=== PATIENT | female | born 1965 | race Caucasian/White ===

== ENCOUNTER 2018-02-21 16:43 | Inpatient (IN) | payer BC ==
[~2018-02-21] VITALS: Ht 170.2 cm; Wt 96.7 kg
[2018-02-21 17:36] LABS: BASOPHILS % (AUTO) 0.1 % (0-1); EOSINOPHILS # (AUTO) 0.3 X10'3 (0-0.9); EOSINOPHILS % (AUTO) 1.6 % (0-6); HEMATOCRIT 45.8 % (35.0-45.0); HEMOGLOBIN 15.8 g/dl (12.0-16.0); LYMPHOCYTES # (AUTO) 1.8 X10'3 (1.1-4.8); LYMPHOCYTES % (AUTO) 9.8 % (21-51); MEAN CORPUSCULAR HEMOGLOBIN 31.8 PG (27.0-31.0); MEAN CORPUSCULAR HGB CONC 34.5 % (33.0-36.5); MEAN CORPUSCULAR VOLUME 92.1 FL (78-98); MEAN PLATELET VOLUME 9.1 FL (7.4-10.4); MONOCYTES # (AUTO) 0.9 X10'3 (0-0.9); NEUTROPHILS # (AUTO) 15.3 X10'3 (1.8-7.7); NEUTROPHILS % (AUTO) 83.5 % (42-75); PLATELET COUNT 344 X10'3 (140-440); RED BLOOD COUNT 4.97 X10'6 (4.20-5.60); RED CELL DISTRIBUTION WIDTH 13.8 % (11.5-14.5); WHITE BLOOD COUNT 18.3 X10'3 (4.5-11.0)
[2018-02-21 17:51] LABS: ALANINE AMINOTRANSFERASE 33 U/L (12-78); ALBUMIN 3.4 G/DL (3.4-5.0); ALBUMIN/GLOBULIN RATIO 0.8 (1.1-1.5); ANION GAP 12 (8-16); ASPARTATE AMINO TRANSFERASE 21 U/L (10-37); BILIRUBIN,TOTAL 1.2 MG/DL (0.1-1.0); BLOOD UREA NITROGEN 11 MG/DL (7-18); CALCIUM 9.4 MG/DL (8.5-10.1); CHLORIDE 98 MMOL/L (99-107); CREATININE 0.92 MG/DL (0.40-0.90); GLUCOSE 126 MG/DL (70-104); POTASSIUM 4.1 MMOL/L (3.5-5.1); SODIUM 133 MMOL/L (135-145); TOTAL CARBON DIOXIDE 23.2 MMOL/L (24-32); TOTAL PROTEIN 7.7 G/DL (6.4-8.2); eGFR 64 ML/MIN
[2018-02-21 17:52] LABS: ALKALINE PHOSPHATASE 116 IU/L (46-116); LIPASE 169 U/L (73-393)
[2018-02-21 17:58] LABS: CLARITY,URINE CLOUDY (Clear); COLOR,URINE YELLOW (Yellow); GLUCOSE, URINE NEGATIVE (Neg); KETONES,URINE 15 mg/dl (Neg); LEUKOCYTE ESTERASE ,URINE TRACE (Neg); NITRITES, URINE POSITIVE (Neg); OCCULT BLOOD,URINE SMALL (Neg); PROTEIN,URINE NEGATIVE (Neg)
[2018-02-21 17:59] LABS: UA COLLECTION TYPE CLN CATCH MIDSTREAM
[2018-02-21 18:03] LABS: BACTERIA,URINE 3+ /HPF (Neg); SQUAMOUS EPITHELIAL CELL,UR MODERATE /LPF (FEW)
[2018-02-21 18:04] LABS: RBC,URINE 0-2 /HPF (0-2); WBC,URINE 20-30 /HPF (0-4)
[2018-02-21] MEDS ORDERED: ondansetron/PF 4mg/2ml inj IV ONE (20:15)
[2018-02-21] MEDS ORDERED: fentaNYL/PF 50MCG/1 ML 2ML syringe IV ONE ×2 (20:15→21:45)
[2018-02-21] MEDS ORDERED: LORazepam 2 mg/ml vial IV ONE (20:15)
[2018-02-21] MEDS ORDERED: normal saline 1000ML IV soln IVB ONE (20:20)
[2018-02-21] MEDS ORDERED: ondansetron 4mg rapidly disintigrating tab PO ONE (20:45)
[2018-02-21] MEDS ORDERED: levoFLOXACIN-Levaquin 750MG/D5 150 ML IV SCH (20:55)
[2018-02-21] MEDS ORDERED: HYDROmorphone inj. 0.5 MG/0.5 ML DISP.SYRIN IV PRN ×2 (21:45)
[2018-02-21] MEDS ORDERED: diphenhydrAMINE 50 mg/ml inj IV PRN (21:45)
[2018-02-21] MEDS ORDERED: LEVO125T PO (22:09)
[2018-02-21] MEDS ORDERED: LISI-600 PO (22:09)
[2018-02-21] MEDS ORDERED: FLUT1AER (22:09)
[2018-02-21] MEDS ORDERED: OMEP20CA10 PO (22:09)
[2018-02-21] MEDS ORDERED: NAS0.025NS BOTHNARES (22:09)
[2018-02-21] MEDS: potassium Cl 20mEq in NS 1,000 ML IV SCH (22:34)
[2018-02-22] VITALS: BP 116/67
[2018-02-22] MEDS: metroNIDAZOLE-Flagyl 500mg/NS 100 ML IV SCH ×4 (00:56→23:27)
[2018-02-22] MEDS: HYDROmorphone 2mg tablet PO PRN ×9 (00:57→21:59)
[2018-02-22] MEDS ORDERED: diphenhydrAMINE 25mg capsule PO PRN (01:15)
[2018-02-22] MEDS: potassium Cl 20mEq in NS 1,000 ML IV SCH ×2 (02:57→17:51)
[2018-02-22 05:21] LABS: BASOPHILS # (AUTO) 0.2 X10'3 (0-0.2); BASOPHILS % (AUTO) 1.4 % (0-1); EOSINOPHILS # (AUTO) 0.4 X10'3 (0-0.9); EOSINOPHILS % (AUTO) 2.8 % (0-6); HEMATOCRIT 40.6 % (35.0-45.0); HEMOGLOBIN 13.9 g/dl (12.0-16.0); LYMPHOCYTES % (AUTO) 15.7 % (21-51); MEAN CORPUSCULAR HGB CONC 34.2 % (33.0-36.5); MEAN CORPUSCULAR VOLUME 93.5 FL (78-98); MEAN PLATELET VOLUME 9.1 FL (7.4-10.4); MONOCYTES % (AUTO) 7.5 % (2-12); NEUTROPHILS # (AUTO) 9.3 X10'3 (1.8-7.7); NEUTROPHILS % (AUTO) 72.6 % (42-75); PLATELET COUNT 252 X10'3 (140-440); RED BLOOD COUNT 4.34 X10'6 (4.20-5.60); RED CELL DISTRIBUTION WIDTH 13.9 % (11.5-14.5); WHITE BLOOD COUNT 12.8 X10'3 (4.5-11.0)
[2018-02-22 06:04] LABS: ALANINE AMINOTRANSFERASE 24 U/L (12-78); ALBUMIN 2.7 G/DL (3.4-5.0); ALBUMIN/GLOBULIN RATIO 0.7 (1.1-1.5); ALKALINE PHOSPHATASE 92 IU/L (46-116); ANION GAP 9 (8-16); ASPARTATE AMINO TRANSFERASE 17 U/L (10-37); BILIRUBIN,TOTAL 1.1 MG/DL (0.1-1.0); BLOOD UREA NITROGEN 9 MG/DL (7-18); BUN/CREATININE RATIO 10.6 (6.6-38.0); CALCIUM 8.4 MG/DL (8.5-10.1); CHLORIDE 103 MMOL/L (99-107); CREATININE 0.85 MG/DL (0.40-0.90); GLUCOSE 93 MG/DL (70-104); LIPASE 138 U/L (73-393); MAGNESIUM 1.6 MG/DL (1.5-2.4); PHOSPHORUS 3.6 MG/DL (2.3-4.5); POTASSIUM 3.6 MMOL/L (3.5-5.1); SODIUM 139 MMOL/L (135-145); TOTAL CARBON DIOXIDE 27.5 MMOL/L (24-32); TOTAL PROTEIN 6.5 G/DL (6.4-8.2); eGFR 71 ML/MIN
[2018-02-22] MEDS: levoTHYROXINE 125mcg tablet PO SCH (07:28)
[2018-02-22] MEDS: enoxaparin 40mg/0.4ml syringe SQ SCH (07:28)
[2018-02-22] MEDS: pantoprazole 40mg Tablet.DR PO SCH (07:28)
[2018-02-22 08:00] VITALS: BP 95/56
[2018-02-22] MEDS ORDERED: levoFLOXACIN-Levaquin 750MG/D5 150 ML IV SCH (08:00)
[2018-02-22] MEDS: lisinopril 20mg tablet PO SCH (08:00)
[2018-02-22] MEDS: levoFLOXACIN-Levaquin 500mg/D5 100 ML IV SCH (10:19)
[2018-02-22] MEDS: fluticasone nasal spray 16GM bottle NS SCH (10:22)
[2018-02-22 11:00] VITALS: BP 87/50
[2018-02-22] MEDS: proMETHazine 25mg tablet PO PRN ×2 (11:52→15:32)
[2018-02-22 19:00] VITALS: BP 110/48
[2018-02-22] MEDS: hydrOXYzine 10 MG tablet PO PRN (19:58)
[2018-02-23] VITALS: BP 111/66
[2018-02-23] MEDS: HYDROmorphone 2mg tablet PO PRN ×7 (00:09→22:03)
[2018-02-23] MEDS: proMETHazine 25mg tablet PO PRN ×3 (00:19→22:32)
[2018-02-23] MEDS: zolpidem 5mg tablet PO PRN ×2 (00:19→22:03)
[2018-02-23] MEDS: hydrOXYzine 10 MG tablet PO PRN ×3 (02:24→18:40)
[2018-02-23] MEDS: potassium Cl 20mEq in NS 1,000 ML IV SCH ×2 (03:38→15:27)
[2018-02-23 06:07] LABS: BASOPHILS # (AUTO) 0.2 X10'3 (0-0.2); BASOPHILS % (AUTO) 1.1 % (0-1); EOSINOPHILS # (AUTO) 0.5 X10'3 (0-0.9); EOSINOPHILS % (AUTO) 3.1 % (0-6); HEMATOCRIT 41.5 % (35.0-45.0); HEMOGLOBIN 14.2 g/dl (12.0-16.0); LYMPHOCYTES % (AUTO) 13.3 % (21-51); MEAN CORPUSCULAR HEMOGLOBIN 32.3 PG (27.0-31.0); MEAN CORPUSCULAR HGB CONC 34.2 % (33.0-36.5); MEAN CORPUSCULAR VOLUME 94.4 FL (78-98); MEAN PLATELET VOLUME 9.8 FL (7.4-10.4); MONOCYTES # (AUTO) 1.2 X10'3 (0-0.9); MONOCYTES % (AUTO) 7.8 % (2-12); NEUTROPHILS # (AUTO) 11.1 X10'3 (1.8-7.7); NEUTROPHILS % (AUTO) 74.7 % (42-75); PLATELET COUNT 261 X10'3 (140-440); RED CELL DISTRIBUTION WIDTH 13.6 % (11.5-14.5); WHITE BLOOD COUNT 14.9 X10'3 (4.5-11.0)
[2018-02-23 06:56] LABS: ALANINE AMINOTRANSFERASE 28 U/L (12-78); ALBUMIN/GLOBULIN RATIO 0.7 (1.1-1.5); ALKALINE PHOSPHATASE 111 IU/L (46-116); ANION GAP 11 (8-16); ASPARTATE AMINO TRANSFERASE 27 U/L (10-37); BILIRUBIN,TOTAL 0.7 MG/DL (0.1-1.0); BLOOD UREA NITROGEN 5 MG/DL (7-18); BUN/CREATININE RATIO 6.2 (6.6-38.0); CALCIUM 8.6 MG/DL (8.5-10.1); CHLORIDE 103 MMOL/L (99-107); CREATININE 0.81 MG/DL (0.40-0.90); GLUCOSE 87 MG/DL (70-104); MAGNESIUM 1.6 MG/DL (1.5-2.4); PHOSPHORUS 3.3 MG/DL (2.3-4.5); POTASSIUM 3.8 MMOL/L (3.5-5.1); SODIUM 136 MMOL/L (135-145); TOTAL CARBON DIOXIDE 21.8 MMOL/L (24-32); TOTAL PROTEIN 7.1 G/DL (6.4-8.2); eGFR 75 ML/MIN
[2018-02-23 07:00] VITALS: BP 110/76
[2018-02-23] MEDS: enoxaparin 40mg/0.4ml syringe SQ SCH (08:20)
[2018-02-23] MEDS: levoTHYROXINE 125mcg tablet PO SCH (08:20)
[2018-02-23] MEDS: pantoprazole 40mg Tablet.DR PO SCH (08:20)
[2018-02-23] MEDS: lisinopril 20mg tablet PO SCH (08:21)
[2018-02-23] MEDS: fluticasone nasal spray 16GM bottle NS SCH (08:21)
[2018-02-23] MEDS: levoFLOXACIN-Levaquin 500mg/D5 100 ML IV SCH (08:22)
[2018-02-23] MEDS: metroNIDAZOLE-Flagyl 500mg/NS 100 ML IV SCH ×2 (08:22→15:26)
[2018-02-23 12:00] VITALS: BP 129/72
[2018-02-23 20:00] VITALS: BP 114/72
[2018-02-24] VITALS: BP 98/69
[2018-02-24] MEDS: metroNIDAZOLE-Flagyl 500mg/NS 100 ML IV SCH ×3 (00:23→16:04)
[2018-02-24] MEDS: potassium Cl 20mEq in NS 1,000 ML IV SCH (00:24)
[2018-02-24] MEDS: hydrOXYzine 10 MG tablet PO PRN ×3 (01:38→21:40)
[2018-02-24] MEDS ORDERED: methylPREDNISolone sod succ 125mg/2ml vial IV ONE (02:40)
[2018-02-24] MEDS: albuterol 2.5 MG/3 ML nebule NEB PRN ×3 (02:59→19:03)
[2018-02-24] MEDS: proMETHazine 25mg tablet PO PRN ×2 (05:08→14:40)
[2018-02-24 05:17] LABS: BASOPHILS # (AUTO) 0.1 X10'3 (0-0.2); BASOPHILS % (AUTO) 0.4 % (0-1); EOSINOPHILS % (AUTO) 0 % (0-6); HEMATOCRIT 38.7 % (35.0-45.0); HEMOGLOBIN 13.3 g/dl (12.0-16.0); LYMPHOCYTES # (AUTO) 1.2 X10'3 (1.1-4.8); LYMPHOCYTES % (AUTO) 7.9 % (21-51); MEAN CORPUSCULAR HEMOGLOBIN 32.2 PG (27.0-31.0); MEAN CORPUSCULAR HGB CONC 34.3 % (33.0-36.5); MEAN CORPUSCULAR VOLUME 93.9 FL (78-98); MEAN PLATELET VOLUME 9.8 FL (7.4-10.4); MONOCYTES # (AUTO) 0.4 X10'3 (0-0.9); MONOCYTES % (AUTO) 2.7 % (2-12); NEUTROPHILS # (AUTO) 13.7 X10'3 (1.8-7.7); PLATELET COUNT 215 X10'3 (140-440); RED BLOOD COUNT 4.12 X10'6 (4.20-5.60); RED CELL DISTRIBUTION WIDTH 13.9 % (11.5-14.5); WHITE BLOOD COUNT 15.4 X10'3 (4.5-11.0)
[2018-02-24 05:35] LABS: ALANINE AMINOTRANSFERASE 24 U/L (12-78); ALBUMIN 2.6 G/DL (3.4-5.0); ALBUMIN/GLOBULIN RATIO 0.7 (1.1-1.5); ALKALINE PHOSPHATASE 104 IU/L (46-116); ANION GAP 14 (8-16); ASPARTATE AMINO TRANSFERASE 41 U/L (10-37); BILIRUBIN,TOTAL 1.1 MG/DL (0.1-1.0); BLOOD UREA NITROGEN 3 MG/DL (7-18); BUN/CREATININE RATIO 4.3 (6.6-38.0); CALCIUM 8.4 MG/DL (8.5-10.1); CHLORIDE 101 MMOL/L (99-107); GLUCOSE 97 MG/DL (70-104); POTASSIUM 3.4 MMOL/L (3.5-5.1); SODIUM 136 MMOL/L (135-145); TOTAL CARBON DIOXIDE 21.2 MMOL/L (24-32); TOTAL PROTEIN 6.4 G/DL (6.4-8.2); eGFR 88 ML/MIN
[2018-02-24 05:41] LABS: MAGNESIUM 1.3 MG/DL (1.5-2.4); PHOSPHORUS 3.3 MG/DL (2.3-4.5); TROPONIN I < 0.04 NG/ML (0.0-0.05)
[2018-02-24] MEDS: pantoprazole 40mg Tablet.DR PO SCH (07:29)
[2018-02-24] MEDS: HYDROmorphone 2mg tablet PO PRN ×5 (07:29→20:34)
[2018-02-24] MEDS: fluticasone nasal spray 16GM bottle NS SCH (07:29)
[2018-02-24] MEDS: levoTHYROXINE 125mcg tablet PO SCH (07:29)
[2018-02-24] MEDS: lisinopril 20mg tablet PO SCH (07:29)
[2018-02-24] MEDS: enoxaparin 40mg/0.4ml syringe SQ SCH (07:30)
[2018-02-24 08:00] VITALS: BP 99/64
[2018-02-24] MEDS ORDERED: levoFLOXACIN-Levaquin 500mg/D5 100 ML IV SCH (08:00)
[2018-02-24] MEDS ORDERED: CefTRIAXone/D5W-Rocephin 1gm 50 ML IV SCH ×2 (08:00→15:40)
[2018-02-24 12:00] VITALS: BP 92/53
[2018-02-24 20:00] VITALS: BP 113/61
[2018-02-24] MEDS ORDERED: magnesium 4gm in 100ml NS 100 ML IV PRN (20:00)
[2018-02-24] MEDS ORDERED: potassium Cl 20 mEq SR tablet PO PRN (20:00)
[2018-02-24] MEDS ORDERED: potassium Cl 40MEQ/NS 500ml 500 ML IV PRN ×2 (20:00)
[2018-02-24] MEDS ORDERED: magnesium Cl slow-release 64mg tablet PO PRN (20:00)
[2018-02-24] MEDS ORDERED: magnesium 2GM in 50ml NS 50 ML IV PRN (20:00)
[2018-02-24] MEDS: potassium Cl 20 mEq SR tablet PO PRN (20:32)
[2018-02-24] MEDS: zolpidem 5mg tablet PO PRN (21:40)
[2018-02-25] VITALS (18 sets, daily range): BP systolic 74–147; BP diastolic 52–116
[2018-02-25] MEDS: metroNIDAZOLE-Flagyl 500mg/NS 100 ML IV SCH (00:09)
[2018-02-25] MEDS: HYDROmorphone 2mg tablet PO PRN (00:12)
[2018-02-25] MEDS: potassium Cl 20 mEq SR tablet PO PRN (00:12)
[2018-02-25] MEDS: albuterol 2.5 MG/3 ML nebule NEB PRN (00:46)
[2018-02-25 05:26] LABS: BASOPHILS # (AUTO) 0.1 X10'3 (0-0.2); BASOPHILS % (AUTO) 0.2 % (0-1); EOSINOPHILS % (AUTO) 0 % (0-6); HEMATOCRIT 40.8 % (35.0-45.0); HEMOGLOBIN 13.8 g/dl (12.0-16.0); LYMPHOCYTES # (AUTO) 0.9 X10'3 (1.1-4.8); LYMPHOCYTES % (AUTO) 2.5 % (21-51); MEAN CORPUSCULAR HEMOGLOBIN 32.1 PG (27.0-31.0); MEAN CORPUSCULAR VOLUME 94.5 FL (78-98); MEAN PLATELET VOLUME 9.5 FL (7.4-10.4); MONOCYTES # (AUTO) 1.4 X10'3 (0-0.9); NEUTROPHILS # (AUTO) 32.2 X10'3 (1.8-7.7); NEUTROPHILS % (AUTO) 93.3 % (42-75); PLATELET COUNT 307 X10'3 (140-440); RED BLOOD COUNT 4.31 X10'6 (4.20-5.60); RED CELL DISTRIBUTION WIDTH 14.2 % (11.5-14.5)
[2018-02-25 05:33] LABS: WHITE BLOOD COUNT 34.5 X10'3 (4.5-11.0)
[2018-02-25 05:51] LABS: ALANINE AMINOTRANSFERASE 24 U/L (12-78); ALBUMIN 2.7 G/DL (3.4-5.0); ALBUMIN/GLOBULIN RATIO 0.6 (1.1-1.5); ALKALINE PHOSPHATASE 101 IU/L (46-116); ANION GAP 19 (8-16); ASPARTATE AMINO TRANSFERASE 48 U/L (10-37); BILIRUBIN,TOTAL 0.4 MG/DL (0.1-1.0); BLOOD UREA NITROGEN 7 MG/DL (7-18); BUN/CREATININE RATIO 7.5 (6.6-38.0); CALCIUM 9.4 MG/DL (8.5-10.1); CHLORIDE 105 MMOL/L (99-107); CREATININE 0.93 MG/DL (0.40-0.90); GLUCOSE 187 MG/DL (70-104); MAGNESIUM 1.7 MG/DL (1.5-2.4); PHOSPHORUS 3.1 MG/DL (2.3-4.5); POTASSIUM 3.5 MMOL/L (3.5-5.1); SODIUM 142 MMOL/L (135-145); TOTAL CARBON DIOXIDE 18.5 MMOL/L (24-32); eGFR 64 ML/MIN
[2018-02-25] MEDS ORDERED: albuterol 2.5 MG/3 ML nebule NEB STA (06:01)
[2018-02-25 06:07] LABS: LARGE PLATELETS FEW; LYMPHOCYTES % (MANUAL) 3 % (21-51); MONOCYTES % (MANUAL) 1 % (2-12); NEUTROPHILS % (MANUAL) 96 % (42-75); PLATELET ESTIMATE NORMAL; TOTAL CELLS COUNTED 100
[2018-02-25 06:08] LABS: TOXIC GRANULATION 1+
[2018-02-25 06:16] LABS: ABG BASE EXCESS -5.5 mmol/L (-2.0-3.0); ABG HCO3 17.9 mmol/L (22.0-26.0); ABG OXYGEN SATURATION 65.6 % (95-98); ABG PCO2 (T) 29.4 mmHg (32.0-45.0); ABG PH (T) 7.402 (7.350-7.450); ALLEN'S TEST Positive; FCOHb 0.8 % (0.5-1.5); FLOW 5 L/min; FMetHb 0.3 % (0.3-1.12); FO2Hb 64.9 % (94-100); RESPIRATORY RATE (OBSERVED) 40 b/min; TOTAL HEMOGLOBIN 13.8 G/dl (12.0-16.0)
[2018-02-25] MEDS ORDERED: normal saline 1000ml 1,000 ML IVB ONE (06:40)
[2018-02-25] MEDS: pantoprazole 40mg Tablet.DR PO SCH (07:30)
[2018-02-25] MEDS ORDERED: rocuronium 10mg/ml inj IV ONE (08:00)
[2018-02-25] MEDS ORDERED: azithromycin/NS 500mg/250ml 250 ML IV SCH (08:00)
[2018-02-25] MEDS ORDERED: etomidate 2mg/ml inj. ONE (08:00)
[2018-02-25] MEDS: fluticasone nasal spray 16GM bottle NS SCH (08:00)
[2018-02-25] MEDS: K and/or MAG REPLACEMENT MC SCH (08:00)
[2018-02-25] MEDS ORDERED: vancomycin/NS 1 GM ADD-VANTAGE 250 ML IV SCH (08:00)
[2018-02-25] MEDS ORDERED: MIDAZolam 5mg/ml 2ml vial ONE ×2 (08:01→09:11)
[2018-02-25 09:06] LABS: ABG BASE EXCESS 1.2 mmol/L (-2.0-3.0); ABG HCO3 25.2 mmol/L (22.0-26.0); ABG OXYGEN SATURATION 73.5 % (95-98); ABG PCO2 (T) 37.9 mmHg (32.0-45.0); ABG PH (T) 7.441 (7.350-7.450); ABG PO2 (T) 38.7 mmHg (83-108); FCOHb 0.2 % (0.5-1.5); FLOW 15 L/min; FMetHb 0.3 % (0.3-1.12); FO2Hb 73.1 % (94-100); TOTAL HEMOGLOBIN 13.4 G/dl (12.0-16.0)
[2018-02-25] MEDS ORDERED: ipratropium/albuterol 3ml nebule NEB PRN (09:30)
[2018-02-25] MEDS: midazolam 100mg in NS 100ml 100 ML IV PRN ×3 (10:11→23:26)
[2018-02-25] MEDS: FENTANYL-0.9 % NACL/PF 100 ML IV PRN ×2 (10:24→21:41)
[2018-02-25] MEDS: cefepime 1GM/NS ADD-VANTAGE 100 ML IV SCH ×3 (10:33→23:00)
[2018-02-25] MEDS: levoTHYROXINE 125mcg tablet PO SCH (11:24)
[2018-02-25] MEDS: enoxaparin 40mg/0.4ml syringe SQ SCH (11:24)
[2018-02-25] MEDS: acetaminophen 325mg tablet PO PRN (11:25)
[2018-02-25] MEDS: ipratropium/albuterol 3ml nebule NEB SCH ×4 (11:27→22:52)
[2018-02-25] MEDS ORDERED: NORepinephrine 8mg/ 250ml NS 250 ML IV SCH (11:35)
[2018-02-25 12:50] LABS: ABG BASE EXCESS -1.2 mmol/L (-2.0-3.0); ABG HCO3 23.2 mmol/L (22.0-26.0); ABG OXYGEN SATURATION 99.4 % (95-98); ABG PCO2 (T) 40.7 mmHg (32.0-45.0); ABG PO2 (T) 341.7 mmHg (83-108); FCOHb 0.3 % (0.5-1.5); FLOW 40 L/min; FMetHb 0.3 % (0.3-1.12); FO2Hb 98.8 % (94-100); MINUTE VOLUME 12 L/min; PATIENT TEMPERATURE 38.7; PEEP 10 cm H2O; RESPIRATORY RATE 20 b/min; RESPIRATORY RATE (OBSERVED) 31 b/min; TIDAL VOLUME 375 mL; TOTAL HEMOGLOBIN 12.8 G/dl (12.0-16.0)
[2018-02-25] MEDS ORDERED: normal saline 1000ml 1,000 ML IV ONE (13:05)
[2018-02-25] MEDS: lactobacillus rhamnosus 10,000 MMU CELLS/CAPSULE PO SCH (19:45)
[2018-02-25] MEDS ORDERED: insulin Lispro (HumaLOG) vial - multi-dose SQ SCH (19:50)
[2018-02-25] MEDS ORDERED: dextrose ORAL solution 15 GM/59 ML bottle PO PRN ×2 (19:50)
[2018-02-25] MEDS ORDERED: MESSAGE TO PHARMACY PO ONE (19:50)
[2018-02-25] MEDS ORDERED: dextrose 50%-water 50ml dispensing syringe IV PRN (19:50)
[2018-02-25] MEDS ORDERED: glucagon, human recombinant 1mg kit SUBCUT PRN (19:50)
[2018-02-25] MEDS: normal saline 1000ml 1,000 ML IV SCH (19:59)
[2018-02-25] MEDS: insulin glargine (Lantus) pen - multi-dose SQ SCH (21:50)
[2018-02-26] VITALS (24 sets, daily range): BP systolic 81–140; BP diastolic 54–89
[2018-02-26] MEDS ORDERED: vancomycin inj 1,250 MG in normal saline 250ml IV soln 250 ML IV SCH ×2
[2018-02-26 03:06] LABS: ALANINE AMINOTRANSFERASE 19 U/L (12-78); ALBUMIN 2.3 G/DL (3.4-5.0); ALBUMIN/GLOBULIN RATIO 0.6 (1.1-1.5); ALKALINE PHOSPHATASE 86 IU/L (46-116); ANION GAP 11 (8-16); ASPARTATE AMINO TRANSFERASE 25 U/L (10-37); BILIRUBIN,TOTAL 0.2 MG/DL (0.1-1.0); BLOOD UREA NITROGEN 12 MG/DL (7-18); BUN/CREATININE RATIO 16.7 (6.6-38.0); CALCIUM 7.9 MG/DL (8.5-10.1); CHLORIDE 109 MMOL/L (99-107); CREATININE 0.72 MG/DL (0.40-0.90); GLUCOSE 162 MG/DL (70-104); POTASSIUM 3.9 MMOL/L (3.5-5.1); SODIUM 144 MMOL/L (135-145); TOTAL CARBON DIOXIDE 24.5 MMOL/L (24-32); eGFR 85 ML/MIN
[2018-02-26] MEDS: ipratropium/albuterol 3ml nebule NEB SCH ×6 (03:06→23:13)
[2018-02-26 03:09] LABS: BASOPHILS % (AUTO) 0 % (0-1); EOSINOPHILS % (AUTO) 0 % (0-6); LYMPHOCYTES # (AUTO) 1.6 X10'3 (1.1-4.8); LYMPHOCYTES % (AUTO) 6.1 % (21-51); MEAN CORPUSCULAR HEMOGLOBIN 31.8 PG (27.0-31.0); MEAN CORPUSCULAR HGB CONC 33.3 % (33.0-36.5); MEAN CORPUSCULAR VOLUME 95.4 FL (78-98); MEAN PLATELET VOLUME 9.2 FL (7.4-10.4); MONOCYTES # (AUTO) 1.4 X10'3 (0-0.9); MONOCYTES % (AUTO) 5.2 % (2-12); NEUTROPHILS # (AUTO) 23.8 X10'3 (1.8-7.7); NEUTROPHILS % (AUTO) 88.7 % (42-75); PLATELET COUNT 298 X10'3 (140-440); RED BLOOD COUNT 3.77 X10'6 (4.20-5.60); RED CELL DISTRIBUTION WIDTH 13.9 % (11.5-14.5)
[2018-02-26 03:14] LABS: WHITE BLOOD COUNT 26.8 X10'3 (4.5-11.0)
[2018-02-26 03:55] LABS: HEMOGLOBIN A1C 6.3 % (4.5-6.2)
[2018-02-26 04:08] LABS: TOTAL CELLS COUNTED 100
[2018-02-26 04:11] LABS: PLATELET ESTIMATE NORMAL
[2018-02-26 04:31] LABS: ABG BASE EXCESS -2.9 mmol/L (-2.0-3.0); ABG OXYGEN SATURATION 94.6 % (95-98); ABG PCO2 (T) 42.7 mmHg (32.0-45.0); ABG PH (T) 7.346 (7.350-7.450); ABG PO2 (T) 71.7 mmHg (83-108); FCOHb 0.1 % (0.5-1.5); FMetHb 0.3 % (0.3-1.12); FO2Hb 94.2 % (94-100); MINUTE VOLUME 8 L/min; PATIENT TEMPERATURE 36.1; PEEP 10 cm H2O; RESPIRATORY RATE 20 b/min; RESPIRATORY RATE (OBSERVED) 20 b/min; TIDAL VOLUME 375 mL; TOTAL HEMOGLOBIN 12.4 G/dl (12.0-16.0)
[2018-02-26] MEDS: normal saline 1000ml 1,000 ML IV SCH ×2 (06:00→19:08)
[2018-02-26] MEDS: midazolam 100mg in NS 100ml 100 ML IV PRN ×3 (06:31→19:36)
[2018-02-26] MEDS: K and/or MAG REPLACEMENT MC SCH (08:00)
[2018-02-26] MEDS: fluticasone nasal spray 16GM bottle NS SCH (08:00)
[2018-02-26] MEDS: enoxaparin 40mg/0.4ml syringe SQ SCH (08:18)
[2018-02-26] MEDS: pantoprazole 40 MG vial IV SCH (08:19)
[2018-02-26] MEDS: lactobacillus rhamnosus 10,000 MMU CELLS/CAPSULE PO SCH ×2 (08:21→21:04)
[2018-02-26] MEDS: cefepime 1GM/NS ADD-VANTAGE 100 ML IV SCH ×2 (08:21→16:30)
[2018-02-26] MEDS: levoTHYROXINE 125mcg tablet PO SCH (08:22)
[2018-02-26] MEDS ORDERED: vancomycin/NS 1 GM ADD-VANTAGE 250 ML IV SCH (09:00)
[2018-02-26] MEDS: vancomycin inj 1,250 MG in normal saline 250ml IV soln 250 ML IV SCH ×2 (12:37→19:07)
[2018-02-26] MEDS: mineral oil/petrolatum ophthal oint EACHEYE SCH ×2 (14:00→21:04)
[2018-02-26] MEDS: FENTANYL-0.9 % NACL/PF 100 ML IV PRN ×2 (14:15→21:59)
[2018-02-26] MEDS: insulin glargine (Lantus) pen - multi-dose SQ SCH (21:00)
[2018-02-27] VITALS (24 sets, daily range): BP systolic 90–131; BP diastolic 50–78
[2018-02-27] MEDS: cefepime 1GM/NS ADD-VANTAGE 100 ML IV SCH ×3 (00:12→16:49)
[2018-02-27] MEDS: midazolam 100mg in NS 100ml 100 ML IV PRN ×5 (00:30→22:03)
[2018-02-27] MEDS: normal saline 1000ml 1,000 ML IV SCH ×2 (01:48→07:39)
[2018-02-27] MEDS: mineral oil/petrolatum ophthal oint EACHEYE SCH ×4 (02:07→19:58)
[2018-02-27] MEDS: vancomycin inj 1,250 MG in normal saline 250ml IV soln 250 ML IV SCH ×2 (02:07→08:59)
[2018-02-27] MEDS: dextrose 50%-water 50ml dispensing syringe IV PRN ×2 (02:15→20:05)
[2018-02-27 03:15] LABS: BASOPHILS % (AUTO) 0.2 % (0-1); EOSINOPHILS # (AUTO) 0.3 X10'3 (0-0.9); EOSINOPHILS % (AUTO) 1.8 % (0-6); HEMATOCRIT 33.2 % (35.0-45.0); LYMPHOCYTES # (AUTO) 1.8 X10'3 (1.1-4.8); LYMPHOCYTES % (AUTO) 11.7 % (21-51); MEAN CORPUSCULAR HEMOGLOBIN 31.5 PG (27.0-31.0); MEAN CORPUSCULAR HGB CONC 33.1 % (33.0-36.5); MEAN CORPUSCULAR VOLUME 95.2 FL (78-98); MEAN PLATELET VOLUME 8.9 FL (7.4-10.4); MONOCYTES # (AUTO) 0.7 X10'3 (0-0.9); MONOCYTES % (AUTO) 4.8 % (2-12); NEUTROPHILS # (AUTO) 12.4 X10'3 (1.8-7.7); NEUTROPHILS % (AUTO) 81.5 % (42-75); PLATELET COUNT 244 X10'3 (140-440); RED BLOOD COUNT 3.48 X10'6 (4.20-5.60); RED CELL DISTRIBUTION WIDTH 14.3 % (11.5-14.5); WHITE BLOOD COUNT 15.3 X10'3 (4.5-11.0)
[2018-02-27 03:22] LABS: ALBUMIN 2.1 G/DL (3.4-5.0); ANION GAP 7 (8-16); BLOOD UREA NITROGEN 10 MG/DL (7-18); BUN/CREATININE RATIO 14.9 (6.6-38.0); CALCIUM 7.6 MG/DL (8.5-10.1); CHLORIDE 111 MMOL/L (99-107); CREATININE 0.67 MG/DL (0.40-0.90); GLUCOSE 123 MG/DL (70-104); POTASSIUM 3.3 MMOL/L (3.5-5.1); SODIUM 146 MMOL/L (135-145); TOTAL CARBON DIOXIDE 27.6 MMOL/L (24-32); eGFR > 90 ML/MIN
[2018-02-27] MEDS: ipratropium/albuterol 3ml nebule NEB SCH ×6 (03:51→23:11)
[2018-02-27 04:06] LABS: ABG BASE EXCESS -1.1 mmol/L (-2.0-3.0); ABG OXYGEN SATURATION 91.9 % (95-98); ABG PH (T) 7.323 (7.350-7.450); ABG PO2 (T) 72.5 mmHg (83-108); FCOHb 0.3 % (0.5-1.5); FO2Hb 91.6 % (94-100); MINUTE VOLUME 10 L/min; PATIENT TEMPERATURE 38.2; PEEP 10 cm H2O; RESPIRATORY RATE 20 b/min; RESPIRATORY RATE (OBSERVED) 23 b/min; TIDAL VOLUME 375 mL; TOTAL HEMOGLOBIN 11.9 G/dl (12.0-16.0)
[2018-02-27] MEDS: acetaminophen 325mg tablet PO PRN ×2 (05:29→20:34)
[2018-02-27] MEDS: FENTANYL-0.9 % NACL/PF 100 ML IV PRN ×3 (05:32→19:58)
[2018-02-27 07:36] LABS: MAGNESIUM 1.8 MG/DL (1.5-2.4)
[2018-02-27] MEDS: pantoprazole 40 MG vial IV SCH (07:36)
[2018-02-27] MEDS: levoTHYROXINE 125mcg tablet PO SCH (07:37)
[2018-02-27] MEDS: lactobacillus rhamnosus 10,000 MMU CELLS/CAPSULE PO SCH ×2 (07:37→19:58)
[2018-02-27] MEDS: enoxaparin 40mg/0.4ml syringe SQ SCH (07:37)
[2018-02-27] MEDS: fluticasone nasal spray 16GM bottle NS SCH (07:51)
[2018-02-27] MEDS: K and/or MAG REPLACEMENT MC SCH (08:00)
[2018-02-27] MEDS ORDERED: VANCOMYCIN LEVEL IV NR ×2 (08:30→11:30)
[2018-02-27] MEDS: [UNRECOGNIZED DRUG - REMARK] IV SCH ×4 (11:34)
[2018-02-27] MEDS: vancomycin/NS 1 GM ADD-VANTAGE 250 ML IV SCH (18:38)
[2018-02-27] MEDS: insulin glargine (Lantus) pen - multi-dose SQ SCH (21:00)
[2018-02-28] VITALS (24 sets, daily range): BP systolic 94–127; BP diastolic 48–74
[2018-02-28] MEDS: cefepime 1GM/NS ADD-VANTAGE 100 ML IV SCH ×4 (00:01→23:29)
[2018-02-28] MEDS: FENTANYL-0.9 % NACL/PF 100 ML IV PRN ×6 (00:02→21:45)
[2018-02-28] MEDS: vancomycin/NS 1 GM ADD-VANTAGE 250 ML IV SCH ×3 (00:59→18:59)
[2018-02-28] MEDS: mineral oil/petrolatum ophthal oint EACHEYE SCH ×4 (02:00→20:20)
[2018-02-28] MEDS: ipratropium/albuterol 3ml nebule NEB SCH ×6 (02:30→23:12)
[2018-02-28 02:40] LABS: ABG BASE EXCESS 1.2 mmol/L (-2.0-3.0); ABG HCO3 27.9 mmol/L (22.0-26.0); ABG OXYGEN SATURATION 87.4 % (95-98); ABG PH (T) 7.309 (7.350-7.450); ABG PO2 (T) 60.9 mmHg (83-108); FCOHb 0.2 % (0.5-1.5); FMetHb 0.1 % (0.3-1.12); FO2Hb 87.1 % (94-100); MINUTE VOLUME 9 L/min; PATIENT TEMPERATURE 38.7; PEEP 10 cm H2O; RESPIRATORY RATE 22 b/min; RESPIRATORY RATE (OBSERVED) 22 b/min; TIDAL VOLUME 375 mL; TOTAL HEMOGLOBIN 12.5 G/dl (12.0-16.0)
[2018-02-28 03:16] LABS: BASOPHILS % (AUTO) 0 % (0-1); EOSINOPHILS # (AUTO) 0.3 X10'3 (0-0.9); HEMATOCRIT 35.5 % (35.0-45.0); HEMOGLOBIN 11.7 g/dl (12.0-16.0); LYMPHOCYTES # (AUTO) 1.8 X10'3 (1.1-4.8); LYMPHOCYTES % (AUTO) 11.3 % (21-51); MEAN CORPUSCULAR HEMOGLOBIN 31.4 PG (27.0-31.0); MEAN CORPUSCULAR VOLUME 95.2 FL (78-98); MEAN PLATELET VOLUME 8.6 FL (7.4-10.4); MONOCYTES # (AUTO) 0.2 X10'3 (0-0.9); MONOCYTES % (AUTO) 1.5 % (2-12); NEUTROPHILS # (AUTO) 13.6 X10'3 (1.8-7.7); NEUTROPHILS % (AUTO) 85.2 % (42-75); PLATELET COUNT 239 X10'3 (140-440); RED BLOOD COUNT 3.73 X10'6 (4.20-5.60); RED CELL DISTRIBUTION WIDTH 14.4 % (11.5-14.5)
[2018-02-28 03:28] LABS: ALANINE AMINOTRANSFERASE 16 U/L (12-78); ALBUMIN/GLOBULIN RATIO 0.5 (1.1-1.5); ALKALINE PHOSPHATASE 77 IU/L (46-116); ANION GAP 9 (8-16); ASPARTATE AMINO TRANSFERASE 40 U/L (10-37); BILIRUBIN,TOTAL 0.4 MG/DL (0.1-1.0); BLOOD UREA NITROGEN 6 MG/DL (7-18); CALCIUM 7.8 MG/DL (8.5-10.1); CHLORIDE 107 MMOL/L (99-107); CREATININE 0.67 MG/DL (0.40-0.90); GLUCOSE 91 MG/DL (70-104); MAGNESIUM 1.6 MG/DL (1.5-2.4); POTASSIUM 3.1 MMOL/L (3.5-5.1); SODIUM 142 MMOL/L (135-145); TOTAL PROTEIN 5.7 G/DL (6.4-8.2); eGFR > 90 ML/MIN
[2018-02-28] MEDS: midazolam 100mg in NS 100ml 100 ML IV PRN ×5 (03:36→23:29)
[2018-02-28] MEDS: acetaminophen 325mg tablet PO PRN (04:07)
[2018-02-28] MEDS: normal saline 1000ml 1,000 ML IV SCH ×2 (07:48)
[2018-02-28] MEDS: K and/or MAG REPLACEMENT MC SCH (08:00)
[2018-02-28] MEDS: fluticasone nasal spray 16GM bottle NS SCH (08:00)
[2018-02-28] MEDS: enoxaparin 40mg/0.4ml syringe SQ SCH (08:04)
[2018-02-28] MEDS: pantoprazole 40 MG vial IV SCH (08:05)
[2018-02-28] MEDS: levoTHYROXINE 125mcg tablet PO SCH (08:06)
[2018-02-28] MEDS: lactobacillus rhamnosus 10,000 MMU CELLS/CAPSULE PO SCH ×2 (08:06→20:20)
[2018-02-28] MEDS ORDERED: magnesium 4gm in 100ml NS 100 ML IV PRN (08:15)
[2018-02-28] MEDS ORDERED: potassium Cl 40MEQ/250ML bag 250 ML IV PRN (08:15)
[2018-02-28] MEDS ORDERED: magnesium 2GM in 50ml NS 50 ML IV PRN (08:15)
[2018-02-28] MEDS ORDERED: magnesium Cl slow-release 64mg tablet PO PRN (08:15)
[2018-02-28] MEDS: potassium Cl 40MEQ/250ML bag 250 ML IV PRN ×3 (09:02→20:49)
[2018-02-28] MEDS ORDERED: FENTANYL-0.9 % NACL/PF 100 ML IV PRN (09:10)
[2018-02-28] MEDS ORDERED: midazolam 100mg in NS 100ml 100 ML IV PRN (09:10)
[2018-02-28] MEDS ORDERED: furosemide 40mg/4ml inj IV ONE (09:30)
[2018-02-28] MEDS: [UNRECOGNIZED DRUG - REMARK] IV SCH ×4 (11:35)
[2018-02-28] MEDS ORDERED: VANCOMYCIN LEVEL IV NR (16:30)
[2018-02-28 17:23] LABS: POTASSIUM 3.3 MMOL/L (3.5-5.1)
[2018-02-28 18:41] LABS: VANCOMYCIN,TROUGH 6.5 UG/ML (6.0-14.0)
[2018-02-28] MEDS: insulin glargine (Lantus) pen - multi-dose SQ SCH (20:20)
[2018-03-01] VITALS (24 sets, daily range): BP systolic 90–135; BP diastolic 43–70
[2018-03-01] MEDS: vancomycin/NS 1 GM ADD-VANTAGE 250 ML IV SCH ×2 (01:29→09:24)
[2018-03-01] MEDS: mineral oil/petrolatum ophthal oint EACHEYE SCH ×4 (02:02→20:23)
[2018-03-01] MEDS: FENTANYL-0.9 % NACL/PF 100 ML IV PRN ×5 (02:02→21:38)
[2018-03-01] MEDS: ipratropium/albuterol 3ml nebule NEB SCH ×6 (03:05→23:12)
[2018-03-01 03:20] LABS: ABG BASE EXCESS 4.9 mmol/L (-2.0-3.0); ABG HCO3 29.3 mmol/L (22.0-26.0); ABG OXYGEN SATURATION 93.6 % (95-98); ABG PH (T) 7.444 (7.350-7.450); FCOHb 0.2 % (0.5-1.5); FMetHb 0.3 % (0.3-1.12); FO2Hb 93.1 % (94-100); MINUTE VOLUME 8 L/min; PATIENT TEMPERATURE 37.6; PEEP 10 cm H2O; RESPIRATORY RATE 22 b/min; RESPIRATORY RATE (OBSERVED) 22 b/min; TIDAL VOLUME 375 mL; TOTAL HEMOGLOBIN 12.1 G/dl (12.0-16.0)
[2018-03-01] MEDS: midazolam 100mg in NS 100ml 100 ML IV PRN ×3 (04:35→21:37)
[2018-03-01 04:48] LABS: BASOPHILS % (AUTO) 0 % (0-1); EOSINOPHILS # (AUTO) 0.5 X10'3 (0-0.9); EOSINOPHILS % (AUTO) 3.5 % (0-6); HEMATOCRIT 34.1 % (35.0-45.0); HEMOGLOBIN 11.4 g/dl (12.0-16.0); LYMPHOCYTES # (AUTO) 1.5 X10'3 (1.1-4.8); LYMPHOCYTES % (AUTO) 11.7 % (21-51); MEAN CORPUSCULAR HEMOGLOBIN 31.8 PG (27.0-31.0); MEAN CORPUSCULAR HGB CONC 33.5 % (33.0-36.5); MEAN CORPUSCULAR VOLUME 95.1 FL (78-98); MEAN PLATELET VOLUME 8.6 FL (7.4-10.4); MONOCYTES # (AUTO) 0.1 X10'3 (0-0.9); MONOCYTES % (AUTO) 0.7 % (2-12); NEUTROPHILS % (AUTO) 84.1 % (42-75); PLATELET COUNT 239 X10'3 (140-440); RED BLOOD COUNT 3.59 X10'6 (4.20-5.60); RED CELL DISTRIBUTION WIDTH 14.2 % (11.5-14.5); WHITE BLOOD COUNT 13.1 X10'3 (4.5-11.0)
[2018-03-01 05:02] LABS: ALANINE AMINOTRANSFERASE 12 U/L (12-78); ALBUMIN 1.7 G/DL (3.4-5.0); ALBUMIN/GLOBULIN RATIO 0.4 (1.1-1.5); ALKALINE PHOSPHATASE 64 IU/L (46-116); ANION GAP 6 (8-16); ASPARTATE AMINO TRANSFERASE 29 U/L (10-37); BILIRUBIN,TOTAL 0.2 MG/DL (0.1-1.0); BLOOD UREA NITROGEN 8 MG/DL (7-18); BUN/CREATININE RATIO 12.9 (6.6-38.0); CALCIUM 8.4 MG/DL (8.5-10.1); CHLORIDE 107 MMOL/L (99-107); CREATININE 0.62 MG/DL (0.40-0.90); GLUCOSE 127 MG/DL (70-104); MAGNESIUM 1.5 MG/DL (1.5-2.4); POTASSIUM 3.2 MMOL/L (3.5-5.1); SODIUM 143 MMOL/L (135-145); TOTAL CARBON DIOXIDE 30.3 MMOL/L (24-32); TOTAL PROTEIN 5.5 G/DL (6.4-8.2); eGFR > 90 ML/MIN
[2018-03-01] MEDS ORDERED: potassium Cl 40MEQ/250ML bag 250 ML IV ONE (05:19)
[2018-03-01] MEDS: potassium Cl 40MEQ/250ML bag 250 ML IV PRN (05:25)
[2018-03-01 06:48] LABS: PLATELET ESTIMATE NORMAL; TOTAL CELLS COUNTED 100
[2018-03-01] MEDS: levoTHYROXINE 125mcg tablet PO SCH (07:31)
[2018-03-01] MEDS: cefepime 1GM/NS ADD-VANTAGE 100 ML IV SCH ×2 (07:31→16:09)
[2018-03-01] MEDS: lactobacillus rhamnosus 10,000 MMU CELLS/CAPSULE PO SCH ×2 (07:31→20:23)
[2018-03-01] MEDS: pantoprazole 40 MG vial IV SCH (07:31)
[2018-03-01] MEDS: fluticasone nasal spray 16GM bottle NS SCH (07:32)
[2018-03-01] MEDS: enoxaparin 40mg/0.4ml syringe SQ SCH (07:32)
[2018-03-01] MEDS: K and/or MAG REPLACEMENT MC SCH (07:37)
[2018-03-01] MEDS: [UNRECOGNIZED DRUG - REMARK] IV SCH ×4 (11:53)
[2018-03-01] MEDS: insulin glargine (Lantus) pen - multi-dose SQ SCH (20:23)
[2018-03-01] MEDS: acetaminophen 325mg tablet PO PRN (20:23)
[2018-03-02] VITALS (23 sets, daily range): BP systolic 94–136; BP diastolic 46–78
[2018-03-02] MEDS: cefepime 1GM/NS ADD-VANTAGE 100 ML IV SCH ×3 (00:25→15:28)
[2018-03-02] MEDS: midazolam 100mg in NS 100ml 100 ML IV PRN ×4 (00:25→18:02)
[2018-03-02 01:32] LABS: ALANINE AMINOTRANSFERASE 10 U/L (12-78); ALBUMIN 1.6 G/DL (3.4-5.0); ALBUMIN/GLOBULIN RATIO 0.4 (1.1-1.5); ALKALINE PHOSPHATASE 64 IU/L (46-116); ANION GAP 6 (8-16); ASPARTATE AMINO TRANSFERASE 25 U/L (10-37); BILIRUBIN,TOTAL 0.3 MG/DL (0.1-1.0); BLOOD UREA NITROGEN 8 MG/DL (7-18); BUN/CREATININE RATIO 11.8 (6.6-38.0); CALCIUM 8.2 MG/DL (8.5-10.1); CHLORIDE 108 MMOL/L (99-107); CREATININE 0.68 MG/DL (0.40-0.90); GLUCOSE 140 MG/DL (70-104); MAGNESIUM 1.5 MG/DL (1.5-2.4); POTASSIUM 3.2 MMOL/L (3.5-5.1); SODIUM 146 MMOL/L (135-145); TOTAL CARBON DIOXIDE 32.4 MMOL/L (24-32); TOTAL PROTEIN 5.5 G/DL (6.4-8.2); eGFR > 90 ML/MIN
[2018-03-02 02:10] LABS: BASOPHILS % (AUTO) 0.1 % (0-1); EOSINOPHILS # (AUTO) 0.6 X10'3 (0-0.9); EOSINOPHILS % (AUTO) 4.8 % (0-6); HEMATOCRIT 33.6 % (35.0-45.0); HEMOGLOBIN 11.3 g/dl (12.0-16.0); LYMPHOCYTES # (AUTO) 1.7 X10'3 (1.1-4.8); LYMPHOCYTES % (AUTO) 14.1 % (21-51); MEAN CORPUSCULAR HEMOGLOBIN 31.7 PG (27.0-31.0); MEAN CORPUSCULAR HGB CONC 33.6 % (33.0-36.5); MEAN CORPUSCULAR VOLUME 94.4 FL (78-98); MEAN PLATELET VOLUME 8.7 FL (7.4-10.4); MONOCYTES # (AUTO) 0.6 X10'3 (0-0.9); MONOCYTES % (AUTO) 4.7 % (2-12); NEUTROPHILS # (AUTO) 9.2 X10'3 (1.8-7.7); NEUTROPHILS % (AUTO) 76.3 % (42-75); PLATELET COUNT 246 X10'3 (140-440); RED BLOOD COUNT 3.55 X10'6 (4.20-5.60); RED CELL DISTRIBUTION WIDTH 14.3 % (11.5-14.5)
[2018-03-02] MEDS: mineral oil/petrolatum ophthal oint EACHEYE SCH ×4 (02:21→20:38)
[2018-03-02] MEDS: FENTANYL-0.9 % NACL/PF 100 ML IV PRN ×4 (02:21→18:50)
[2018-03-02] MEDS: ipratropium/albuterol 3ml nebule NEB SCH ×6 (02:43→23:02)
[2018-03-02 02:56] LABS: ABG BASE EXCESS 7.5 mmol/L (-2.0-3.0); ABG HCO3 31.8 mmol/L (22.0-26.0); ABG OXYGEN SATURATION 93.6 % (95-98); ABG PCO2 (T) 43.6 mmHg (32.0-45.0); ABG PH (T) 7.481 (7.350-7.450); ABG PO2 (T) 65.6 mmHg (83-108); FCOHb 0.2 % (0.5-1.5); FMetHb 0.3 % (0.3-1.12); FO2Hb 93.1 % (94-100); MINUTE VOLUME 8 L/min; PATIENT TEMPERATURE 36.9; PEEP 5 cm H2O; RESPIRATORY RATE 22 b/min; RESPIRATORY RATE (OBSERVED) 22 b/min; TIDAL VOLUME 375 mL; TOTAL HEMOGLOBIN 12.3 G/dl (12.0-16.0)
[2018-03-02] MEDS ORDERED: potassium Cl 40MEQ/250ML bag 250 ML IV ONE (04:44)
[2018-03-02] MEDS: lactobacillus rhamnosus 10,000 MMU CELLS/CAPSULE PO SCH ×2 (07:43→20:39)
[2018-03-02] MEDS: levoTHYROXINE 125mcg tablet PO SCH (07:43)
[2018-03-02] MEDS: magnesium hydroxide 30ml (MOM) UD suspension PO PRN (07:43)
[2018-03-02] MEDS: enoxaparin 40mg/0.4ml syringe SQ SCH (07:44)
[2018-03-02] MEDS: pantoprazole 40 MG vial IV SCH (07:45)
[2018-03-02] MEDS: K and/or MAG REPLACEMENT MC SCH (07:45)
[2018-03-02] MEDS: fluticasone nasal spray 16GM bottle NS SCH (07:46)
[2018-03-02] MEDS ORDERED: furosemide 40mg/4ml inj IV ONE (09:05)
[2018-03-02] MEDS: [UNRECOGNIZED DRUG - REMARK] IV SCH ×4 (11:09)
[2018-03-02] MEDS: insulin glargine (Lantus) pen - multi-dose SQ SCH (20:39)
[2018-03-02] MEDS: acetaminophen 325mg tablet PO PRN (20:39)
[2018-03-03] VITALS (24 sets, daily range): BP systolic 91–157; BP diastolic 54–128
[2018-03-03] MEDS ORDERED: potassium Cl 40MEQ/250ML bag 250 ML IV ONE
[2018-03-03] MEDS: cefepime 1GM/NS ADD-VANTAGE 100 ML IV SCH ×3 (00:08→16:09)
[2018-03-03 02:46] LABS: ABG BASE EXCESS 3.9 mmol/L (-2.0-3.0); ABG HCO3 25.7 mmol/L (22.0-26.0); ABG OXYGEN SATURATION 93.5 % (95-98); ABG PCO2 (T) 30.2 mmHg (32.0-45.0); ABG PH (T) 7.549 (7.350-7.450); ABG PO2 (T) 62.7 mmHg (83-108); FCOHb 0.1 % (0.5-1.5); FMetHb 0.3 % (0.3-1.12); FO2Hb 93.1 % (94-100); MINUTE VOLUME 8 L/min; PATIENT TEMPERATURE 37.3; PEEP 5 cm H2O; RESPIRATORY RATE 22 b/min; RESPIRATORY RATE (OBSERVED) 22 b/min; TIDAL VOLUME 375 mL; TOTAL HEMOGLOBIN 11.3 G/dl (12.0-16.0)
[2018-03-03] MEDS: ipratropium/albuterol 3ml nebule NEB SCH ×6 (02:46→23:15)
[2018-03-03] MEDS: mineral oil/petrolatum ophthal oint EACHEYE SCH ×4 (02:56→20:00)
[2018-03-03 03:53] LABS: BASOPHILS % (AUTO) 0.4 % (0-1); EOSINOPHILS # (AUTO) 0.4 X10'3 (0-0.9); EOSINOPHILS % (AUTO) 4.2 % (0-6); HEMATOCRIT 33.2 % (35.0-45.0); HEMOGLOBIN 11.1 g/dl (12.0-16.0); LYMPHOCYTES % (AUTO) 21.2 % (21-51); MEAN CORPUSCULAR HEMOGLOBIN 31.4 PG (27.0-31.0); MEAN CORPUSCULAR HGB CONC 33.6 % (33.0-36.5); MEAN CORPUSCULAR VOLUME 93.6 FL (78-98); MEAN PLATELET VOLUME 7.8 FL (7.4-10.4); MONOCYTES # (AUTO) 0.6 X10'3 (0-0.9); MONOCYTES % (AUTO) 6.5 % (2-12); NEUTROPHILS # (AUTO) 6.4 X10'3 (1.8-7.7); NEUTROPHILS % (AUTO) 67.7 % (42-75); PLATELET COUNT 250 X10'3 (140-440); RED BLOOD COUNT 3.55 X10'6 (4.20-5.60); RED CELL DISTRIBUTION WIDTH 14.4 % (11.5-14.5); WHITE BLOOD COUNT 9.5 X10'3 (4.5-11.0)
[2018-03-03 04:05] LABS: ALBUMIN 1.7 G/DL (3.4-5.0); ANION GAP 6 (8-16); BLOOD UREA NITROGEN 15 MG/DL (7-18); BUN/CREATININE RATIO 27.3 (6.6-38.0); CALCIUM 8.3 MG/DL (8.5-10.1); CHLORIDE 103 MMOL/L (99-107); CREATININE 0.55 MG/DL (0.40-0.90); GLUCOSE 120 MG/DL (70-104); POTASSIUM 3.5 MMOL/L (3.5-5.1); SODIUM 139 MMOL/L (135-145); TOTAL CARBON DIOXIDE 29.7 MMOL/L (24-32); eGFR > 90 ML/MIN
[2018-03-03] MEDS: midazolam 100mg in NS 100ml 100 ML IV PRN (05:10)
[2018-03-03] MEDS: FENTANYL-0.9 % NACL/PF 100 ML IV PRN (05:10)
[2018-03-03] MEDS: levoTHYROXINE 125mcg tablet PO SCH (07:56)
[2018-03-03] MEDS: enoxaparin 40mg/0.4ml syringe SQ SCH (07:56)
[2018-03-03] MEDS: lactobacillus rhamnosus 10,000 MMU CELLS/CAPSULE PO SCH ×2 (07:56→20:00)
[2018-03-03] MEDS: magnesium hydroxide 30ml (MOM) UD suspension PO PRN (07:56)
[2018-03-03] MEDS: pantoprazole 40 MG vial IV SCH (07:57)
[2018-03-03] MEDS: fluticasone nasal spray 16GM bottle NS SCH (07:57)
[2018-03-03] MEDS: K and/or MAG REPLACEMENT MC SCH (08:00)
[2018-03-03 08:09] LABS: MAGNESIUM 1.8 MG/DL (1.5-2.4); PHOSPHORUS 2.4 MG/DL (2.3-4.5)
[2018-03-03] MEDS: [UNRECOGNIZED DRUG - REMARK] IV SCH ×4 (10:36)
[2018-03-03] MEDS: insulin glargine (Lantus) pen - multi-dose SQ SCH (21:00)
[2018-03-04] VITALS (23 sets, daily range): BP systolic 135–168; BP diastolic 70–86
[2018-03-04] MEDS: cefepime 1GM/NS ADD-VANTAGE 100 ML IV SCH ×2 (00:49→07:27)
[2018-03-04 02:51] LABS: ABG BASE EXCESS 4.1 mmol/L (-2.0-3.0); ABG HCO3 27.1 mmol/L (22.0-26.0); ABG PCO2 (T) 34.6 mmHg (32.0-45.0); ABG PH (T) 7.511 (7.350-7.450); ABG PO2 (T) 68.7 mmHg (83-108); FCOHb 0.5 % (0.5-1.5); FMetHb 0.3 % (0.3-1.12); FO2Hb 93.2 % (94-100); MINUTE VOLUME 8 L/min; PEEP 5 cm H2O; RESPIRATORY RATE 20 b/min; RESPIRATORY RATE (OBSERVED) 21 b/min; TIDAL VOLUME 375 mL; TOTAL HEMOGLOBIN 11.5 G/dl (12.0-16.0)
[2018-03-04] MEDS: ipratropium/albuterol 3ml nebule NEB SCH ×6 (02:52→23:17)
[2018-03-04] MEDS: mineral oil/petrolatum ophthal oint EACHEYE SCH ×4 (03:10→20:49)
[2018-03-04 04:48] LABS: BASOPHILS % (AUTO) 0.4 % (0-1); EOSINOPHILS # (AUTO) 0.5 X10'3 (0-0.9); EOSINOPHILS % (AUTO) 4.2 % (0-6); HEMATOCRIT 32.8 % (35.0-45.0); LYMPHOCYTES # (AUTO) 1.9 X10'3 (1.1-4.8); LYMPHOCYTES % (AUTO) 16.5 % (21-51); MEAN CORPUSCULAR HEMOGLOBIN 31.3 PG (27.0-31.0); MEAN CORPUSCULAR HGB CONC 33.6 % (33.0-36.5); MEAN CORPUSCULAR VOLUME 93.3 FL (78-98); MEAN PLATELET VOLUME 8.6 FL (7.4-10.4); MONOCYTES # (AUTO) 0.8 X10'3 (0-0.9); MONOCYTES % (AUTO) 6.7 % (2-12); NEUTROPHILS # (AUTO) 8.4 X10'3 (1.8-7.7); NEUTROPHILS % (AUTO) 72.2 % (42-75); PLATELET COUNT 272 X10'3 (140-440); RED BLOOD COUNT 3.51 X10'6 (4.20-5.60); RED CELL DISTRIBUTION WIDTH 14.3 % (11.5-14.5); WHITE BLOOD COUNT 11.6 X10'3 (4.5-11.0)
[2018-03-04 04:58] LABS: ANION GAP 8 (8-16); BLOOD UREA NITROGEN 16 MG/DL (7-18); BUN/CREATININE RATIO 29.6 (6.6-38.0); CALCIUM 8.6 MG/DL (8.5-10.1); CHLORIDE 102 MMOL/L (99-107); CREATININE 0.54 MG/DL (0.40-0.90); GLUCOSE 167 MG/DL (70-104); POTASSIUM 3.3 MMOL/L (3.5-5.1); SODIUM 138 MMOL/L (135-145); TOTAL CARBON DIOXIDE 28.2 MMOL/L (24-32); eGFR > 90 ML/MIN
[2018-03-04] MEDS: potassium Cl 40MEQ/250ML bag 250 ML IV PRN (07:07)
[2018-03-04] MEDS: pantoprazole 40 MG vial IV SCH (07:27)
[2018-03-04] MEDS: fluticasone nasal spray 16GM bottle NS SCH (07:28)
[2018-03-04] MEDS: enoxaparin 40mg/0.4ml syringe SQ SCH (07:28)
[2018-03-04] MEDS: levoTHYROXINE 125mcg tablet PO SCH (07:28)
[2018-03-04] MEDS: lactobacillus rhamnosus 10,000 MMU CELLS/CAPSULE PO SCH ×2 (07:28→20:49)
[2018-03-04 07:30] LABS: MAGNESIUM 1.9 MG/DL (1.5-2.4); PHOSPHORUS 2.1 MG/DL (2.3-4.5)
[2018-03-04] MEDS: K and/or MAG REPLACEMENT MC SCH (08:00)
[2018-03-04] MEDS: dexmedetomidin/NS 400mcg/100ml 100 ML IV SCH ×3 (10:41→20:49)
[2018-03-04] MEDS: [UNRECOGNIZED DRUG - REMARK] IV SCH ×4 (11:23)
[2018-03-04] MEDS: insulin regular, human vial - multi-dose SQ SCH ×2 (15:57→22:03)
[2018-03-04] MEDS: midazolam 100mg in NS 100ml 100 ML IV PRN ×2 (16:07→22:28)
[2018-03-04] MEDS: insulin glargine (Lantus) pen - multi-dose SQ SCH (22:01)
[2018-03-05] VITALS (24 sets, daily range): BP systolic 123–168; BP diastolic 56–84
[2018-03-05] MEDS: mineral oil/petrolatum ophthal oint EACHEYE SCH ×4 (02:29→19:53)
[2018-03-05] MEDS: insulin regular, human vial - multi-dose SQ SCH ×3 (02:33→14:22)
[2018-03-05 02:50] LABS: ABG BASE EXCESS 0.9 mmol/L (-2.0-3.0); ABG HCO3 24.6 mmol/L (22.0-26.0); ABG OXYGEN SATURATION 96.5 % (95-98); ABG PCO2 (T) 35.8 mmHg (32.0-45.0); ABG PH (T) 7.454 (7.350-7.450); ABG PO2 (T) 85.2 mmHg (83-108); FMetHb 0.3 % (0.3-1.12); FO2Hb 96.2 % (94-100); PATIENT TEMPERATURE 36.7; PEEP 5 cm H2O; RESPIRATORY RATE 18 b/min; RESPIRATORY RATE (OBSERVED) 20 b/min; TIDAL VOLUME 375 mL; TOTAL HEMOGLOBIN 12.3 G/dl (12.0-16.0)
[2018-03-05] MEDS: ipratropium/albuterol 3ml nebule NEB SCH ×5 (03:17→20:05)
[2018-03-05 03:33] LABS: BASOPHILS % (AUTO) 0.3 % (0-1); EOSINOPHILS # (AUTO) 0.6 X10'3 (0-0.9); EOSINOPHILS % (AUTO) 4.2 % (0-6); HEMATOCRIT 34.5 % (35.0-45.0); HEMOGLOBIN 11.8 g/dl (12.0-16.0); LYMPHOCYTES # (AUTO) 1.9 X10'3 (1.1-4.8); LYMPHOCYTES % (AUTO) 13.9 % (21-51); MEAN CORPUSCULAR HEMOGLOBIN 32.2 PG (27.0-31.0); MEAN CORPUSCULAR HGB CONC 34.4 % (33.0-36.5); MEAN CORPUSCULAR VOLUME 93.6 FL (78-98); MEAN PLATELET VOLUME 8.7 FL (7.4-10.4); MONOCYTES # (AUTO) 0.9 X10'3 (0-0.9); MONOCYTES % (AUTO) 6.6 % (2-12); NEUTROPHILS # (AUTO) 10.1 X10'3 (1.8-7.7); PLATELET COUNT 298 X10'3 (140-440); RED BLOOD COUNT 3.68 X10'6 (4.20-5.60); RED CELL DISTRIBUTION WIDTH 14.3 % (11.5-14.5); WHITE BLOOD COUNT 13.5 X10'3 (4.5-11.0)
[2018-03-05 03:44] LABS: ALBUMIN 2.1 G/DL (3.4-5.0); ANION GAP 9 (8-16); BLOOD UREA NITROGEN 18 MG/DL (7-18); BUN/CREATININE RATIO 36.7 (6.6-38.0); CALCIUM 8.9 MG/DL (8.5-10.1); CHLORIDE 103 MMOL/L (99-107); CREATININE 0.49 MG/DL (0.40-0.90); GLUCOSE 187 MG/DL (70-104); POTASSIUM 3.5 MMOL/L (3.5-5.1); SODIUM 138 MMOL/L (135-145); TOTAL CARBON DIOXIDE 25.8 MMOL/L (24-32); eGFR > 90 ML/MIN
[2018-03-05] MEDS: midazolam 100mg in NS 100ml 100 ML IV PRN ×2 (03:57→12:55)
[2018-03-05] MEDS: dexmedetomidin/NS 400mcg/100ml 100 ML IV SCH ×3 (03:58→14:41)
[2018-03-05] MEDS: enoxaparin 40mg/0.4ml syringe SQ SCH (07:32)
[2018-03-05] MEDS: levoTHYROXINE 125mcg tablet PO SCH (07:32)
[2018-03-05] MEDS: lactobacillus rhamnosus 10,000 MMU CELLS/CAPSULE PO SCH ×2 (07:32→19:53)
[2018-03-05] MEDS: pantoprazole 40 MG vial IV SCH (07:32)
[2018-03-05] MEDS: fluticasone nasal spray 16GM bottle NS SCH (07:33)
[2018-03-05] MEDS: K and/or MAG REPLACEMENT MC SCH (07:33)
[2018-03-05 11:08] LABS: PHOSPHORUS 4.1 MG/DL (2.3-4.5)
[2018-03-05] MEDS: [UNRECOGNIZED DRUG - REMARK] IV SCH ×4 (11:30)
[2018-03-05] MEDS ORDERED: racepinephrine 11.25mg/0.5ml nebule NEB PRN (16:40)
[2018-03-05] MEDS ORDERED: ipratropium/albuterol 3ml nebule NEB PRN (16:40)
[2018-03-05] MEDS: insulin glargine (Lantus) pen - multi-dose SQ SCH (21:00)
[2018-03-06] VITALS (21 sets, daily range): BP systolic 104–184; BP diastolic 57–92
[2018-03-06] MEDS ORDERED: hydrALAZINE 20mg/ml inj. IV PRN (01:00)
[2018-03-06] MEDS: mineral oil/petrolatum ophthal oint EACHEYE SCH ×4 (02:00→19:13)
[2018-03-06] MEDS: ipratropium/albuterol 3ml nebule NEB SCH ×4 (03:29→20:13)
[2018-03-06 05:30] LABS: BASOPHILS # (AUTO) 0.1 X10'3 (0-0.2); BASOPHILS % (AUTO) 0.4 % (0-1); EOSINOPHILS # (AUTO) 0.6 X10'3 (0-0.9); EOSINOPHILS % (AUTO) 3.6 % (0-6); HEMATOCRIT 38.7 % (35.0-45.0); HEMOGLOBIN 12.8 g/dl (12.0-16.0); LYMPHOCYTES # (AUTO) 2.5 X10'3 (1.1-4.8); LYMPHOCYTES % (AUTO) 15.9 % (21-51); MEAN CORPUSCULAR HEMOGLOBIN 31.1 PG (27.0-31.0); MEAN CORPUSCULAR VOLUME 94.4 FL (78-98); MEAN PLATELET VOLUME 8.7 FL (7.4-10.4); MONOCYTES # (AUTO) 0.9 X10'3 (0-0.9); MONOCYTES % (AUTO) 5.6 % (2-12); NEUTROPHILS # (AUTO) 11.9 X10'3 (1.8-7.7); NEUTROPHILS % (AUTO) 74.5 % (42-75); PLATELET COUNT 357 X10'3 (140-440); RED CELL DISTRIBUTION WIDTH 14.4 % (11.5-14.5)
[2018-03-06 05:54] LABS: ALANINE AMINOTRANSFERASE 19 U/L (12-78); ALBUMIN 2.2 G/DL (3.4-5.0); ALBUMIN/GLOBULIN RATIO 0.5 (1.1-1.5); ALKALINE PHOSPHATASE 116 IU/L (46-116); ANION GAP 9 (8-16); ASPARTATE AMINO TRANSFERASE 21 U/L (10-37); BILIRUBIN,TOTAL 0.2 MG/DL (0.1-1.0); BLOOD UREA NITROGEN 18 MG/DL (7-18); BUN/CREATININE RATIO 32.7 (6.6-38.0); CHLORIDE 106 MMOL/L (99-107); CREATININE 0.55 MG/DL (0.40-0.90); GLUCOSE 139 MG/DL (70-104); POTASSIUM 3.5 MMOL/L (3.5-5.1); SODIUM 143 MMOL/L (135-145); TOTAL PROTEIN 6.6 G/DL (6.4-8.2); eGFR > 90 ML/MIN
[2018-03-06] MEDS: K and/or MAG REPLACEMENT MC SCH (08:00)
[2018-03-06] MEDS: levoTHYROXINE 125mcg tablet PO SCH (08:43)
[2018-03-06] MEDS: lactobacillus rhamnosus 10,000 MMU CELLS/CAPSULE PO SCH ×2 (08:43→19:42)
[2018-03-06] MEDS: enoxaparin 40mg/0.4ml syringe SQ SCH (08:43)
[2018-03-06] MEDS: pantoprazole 40 MG vial IV SCH (08:43)
[2018-03-06] MEDS: fluticasone nasal spray 16GM bottle NS SCH (08:44)
[2018-03-06] MEDS ORDERED: dexmedetomidin/NS 400mcg/100ml 100 ML IV SCH (10:30)
[2018-03-06] MEDS: [UNRECOGNIZED DRUG - REMARK] IV SCH ×4 (11:06)
[2018-03-06] MEDS: HYDROmorphone 2mg tablet PO PRN ×4 (11:08→23:58)
[2018-03-06] MEDS: insulin glargine (Lantus) pen - multi-dose SQ SCH (21:00)
[2018-03-06] MEDS: ondansetron/PF 4mg/2ml inj IV PRN (23:46)
[2018-03-07] MEDS: zolpidem 5mg tablet PO PRN (00:49)
[2018-03-07] MEDS: mineral oil/petrolatum ophthal oint EACHEYE SCH ×2 (01:59→08:00)
[2018-03-07] MEDS: acetaminophen 325mg tablet PO PRN ×2 (02:15→08:38)
[2018-03-07] MEDS: ipratropium/albuterol 3ml nebule NEB SCH ×4 (02:45→20:09)
[2018-03-07 03:00] VITALS: BP 138/75
[2018-03-07] MEDS ORDERED: proCHLORperazine 10 MG/2 ml inj IV ONE (03:05)
[2018-03-07 04:57] LABS: BASOPHILS # (AUTO) 0.1 X10'3 (0-0.2); BASOPHILS % (AUTO) 0.5 % (0-1); EOSINOPHILS # (AUTO) 0.4 X10'3 (0-0.9); EOSINOPHILS % (AUTO) 2.3 % (0-6); HEMATOCRIT 37.6 % (35.0-45.0); HEMOGLOBIN 12.9 g/dl (12.0-16.0); LYMPHOCYTES # (AUTO) 2.1 X10'3 (1.1-4.8); LYMPHOCYTES % (AUTO) 13.6 % (21-51); MEAN CORPUSCULAR HEMOGLOBIN 31.5 PG (27.0-31.0); MEAN CORPUSCULAR HGB CONC 34.2 % (33.0-36.5); MEAN CORPUSCULAR VOLUME 92.1 FL (78-98); MEAN PLATELET VOLUME 8.7 FL (7.4-10.4); MONOCYTES # (AUTO) 1.1 X10'3 (0-0.9); MONOCYTES % (AUTO) 6.8 % (2-12); NEUTROPHILS # (AUTO) 11.9 X10'3 (1.8-7.7); NEUTROPHILS % (AUTO) 76.8 % (42-75); PLATELET COUNT 446 X10'3 (140-440); RED BLOOD COUNT 4.08 X10'6 (4.20-5.60); RED CELL DISTRIBUTION WIDTH 14.2 % (11.5-14.5); WHITE BLOOD COUNT 15.5 X10'3 (4.5-11.0)
[2018-03-07 05:00] VITALS: BP 109/64
[2018-03-07] MEDS: K and/or MAG REPLACEMENT MC SCH (08:00)
[2018-03-07] MEDS: fluticasone nasal spray 16GM bottle NS SCH (08:00)
[2018-03-07] MEDS ORDERED: thiamine 100mg tablet PO SCH (08:00)
[2018-03-07] MEDS: folic acid 1mg tablet PO SCH (08:25)
[2018-03-07] MEDS: pantoprazole 40 MG vial IV SCH (08:25)
[2018-03-07] MEDS: lactobacillus rhamnosus 10,000 MMU CELLS/CAPSULE PO SCH ×2 (08:25→19:01)
[2018-03-07] MEDS: levoTHYROXINE 125mcg tablet PO SCH (08:25)
[2018-03-07] MEDS: multivitamins, therapeutics tablet PO SCH (08:25)
[2018-03-07] MEDS: enoxaparin 40mg/0.4ml syringe SQ SCH (08:26)
[2018-03-07] MEDS: HYDROmorphone 2mg tablet PO PRN ×5 (08:26→22:56)
[2018-03-07] MEDS: proMETHazine 25mg tablet PO PRN ×3 (08:38→21:31)
[2018-03-07 10:00] VITALS: BP 123/75
[2018-03-07] MEDS: ondansetron/PF 4mg/2ml inj IV PRN (12:02)
[2018-03-07 14:32] LABS: ALANINE AMINOTRANSFERASE 38 U/L (12-78); ALBUMIN 2.8 G/DL (3.4-5.0); ALBUMIN/GLOBULIN RATIO 0.6 (1.1-1.5); ALKALINE PHOSPHATASE 146 IU/L (46-116); ANION GAP 10 (8-16); ASPARTATE AMINO TRANSFERASE 32 U/L (10-37); BILIRUBIN,TOTAL 0.3 MG/DL (0.1-1.0); BLOOD UREA NITROGEN 13 MG/DL (7-18); BUN/CREATININE RATIO 19.7 (6.6-38.0); CALCIUM 9.5 MG/DL (8.5-10.1); CHLORIDE 97 MMOL/L (99-107); CREATININE 0.66 MG/DL (0.40-0.90); GLUCOSE 165 MG/DL (70-104); POTASSIUM 3.3 MMOL/L (3.5-5.1); SODIUM 134 MMOL/L (135-145); TOTAL CARBON DIOXIDE 26.8 MMOL/L (24-32); TOTAL PROTEIN 7.4 G/DL (6.4-8.2); eGFR > 90 ML/MIN
[2018-03-07] MEDS ORDERED: potassium Cl 20 mEq SR tablet PO PRN (14:50)
[2018-03-07] MEDS ORDERED: potassium Cl 40MEQ/NS 500ml 500 ML IV PRN ×2 (14:50)
[2018-03-07] MEDS: potassium Cl 20 mEq SR tablet PO PRN ×2 (15:34→19:04)
[2018-03-07 18:00] VITALS: BP 150/72
[2018-03-07] MEDS: insulin glargine (Lantus) pen - multi-dose SQ SCH (21:00)
[2018-03-07 22:00] VITALS: BP 145/80
[2018-03-07] MEDS: hydrOXYzine 10 MG tablet PO PRN (22:56)
[2018-03-08] MEDS: ipratropium/albuterol 3ml nebule NEB SCH ×2 (02:38→08:50)
[2018-03-08] MEDS: HYDROmorphone 2mg tablet PO PRN ×3 (03:01→11:43)
[2018-03-08 05:00] VITALS: BP 111/69
[2018-03-08 06:12] LABS: BASOPHILS # (AUTO) 0.2 X10'3 (0-0.2); BASOPHILS % (AUTO) 1.5 % (0-1); EOSINOPHILS # (AUTO) 0.4 X10'3 (0-0.9); EOSINOPHILS % (AUTO) 3.5 % (0-6); HEMATOCRIT 38.2 % (35.0-45.0); HEMOGLOBIN 13.2 g/dl (12.0-16.0); LYMPHOCYTES # (AUTO) 2.3 X10'3 (1.1-4.8); LYMPHOCYTES % (AUTO) 18.5 % (21-51); MEAN CORPUSCULAR HEMOGLOBIN 31.7 PG (27.0-31.0); MEAN CORPUSCULAR HGB CONC 34.5 % (33.0-36.5); MEAN CORPUSCULAR VOLUME 91.8 FL (78-98); MEAN PLATELET VOLUME 8.3 FL (7.4-10.4); MONOCYTES % (AUTO) 7.6 % (2-12); NEUTROPHILS # (AUTO) 8.7 X10'3 (1.8-7.7); NEUTROPHILS % (AUTO) 68.9 % (42-75); PLATELET COUNT 512 X10'3 (140-440); RED BLOOD COUNT 4.16 X10'6 (4.20-5.60); RED CELL DISTRIBUTION WIDTH 14.2 % (11.5-14.5); WHITE BLOOD COUNT 12.6 X10'3 (4.5-11.0)
[2018-03-08 06:22] LABS: MAGNESIUM 1.9 MG/DL (1.5-2.4); POTASSIUM 3.5 MMOL/L (3.5-5.1)
[2018-03-08] MEDS: lactobacillus rhamnosus 10,000 MMU CELLS/CAPSULE PO SCH (07:20)
[2018-03-08] MEDS: pantoprazole 40 MG vial IV SCH (07:20)
[2018-03-08] MEDS: K and/or MAG REPLACEMENT MC SCH (07:20)
[2018-03-08] MEDS: fluticasone nasal spray 16GM bottle NS SCH (07:20)
[2018-03-08] MEDS: folic acid 1mg tablet PO SCH (07:21)
[2018-03-08] MEDS: enoxaparin 40mg/0.4ml syringe SQ SCH (07:21)
[2018-03-08] MEDS: levoTHYROXINE 125mcg tablet PO SCH (07:22)
[2018-03-08] MEDS: multivitamins, therapeutics tablet PO SCH (07:22)
[2018-03-08] MEDS: proMETHazine 25mg tablet PO PRN (07:22)
[2018-03-08 10:00] VITALS: BP_SYST 107; BP_SYST 124; BP_DIAS 70; BP_DIAS 79
[2018-03-08] MEDS ORDERED: LISI10TA4 PO (14:49)
[2018-03-08] MEDS ORDERED: LEVO500T2 PO (14:51)
== END 2018-03-08 15:25 | disposition home or self-care (01) | DRG 438 ==
LOC: ER 16:44 → ED HOLD 21:41 → EDBEDREQ 22:21 → SUR 3N 22:42 → CICU 2S 02-25 07:10 → PCU 3S 03-06 17:25 → ORTHO 4S 03-07 05:31
PROVIDERS: ADMIT Internal Medicine; ATTEND Internal Medicine
PROC: 5A1955Z Respiratory Ventilation, Greater than 96 Consecutive Hours (ICD-10-PCS; principal; 2018-02-25)
PROC: 0BH17EZ Insertion of Endotracheal Airway into Trachea, Via Natural or Artificial Opening (ICD-10-PCS; 2018-02-25)
DX: K85.90 Acute pancreatitis without necrosis or infection, unspecified (principal); J18.9 Pneumonia, unspecified organism; R57.9 Shock, unspecified; J96.01 Acute respiratory failure with hypoxia; N39.0 Urinary tract infection, site not specified; B96.20 Unspecified Escherichia coli [E. coli] as the cause of diseases classified elsewhere; E03.9 Hypothyroidism, unspecified; G89.29 Other chronic pain; J45.909 Unspecified asthma, uncomplicated; K21.9 Gastro-esophageal reflux disease without esophagitis; K86.1 Other chronic pancreatitis; Z16.23 Resistance to quinolones and fluoroquinolones; Z88.0 Allergy status to penicillin; Z88.2 Allergy status to sulfonamides; Z88.6 Allergy status to analgesic agent; Z90.49 Acquired absence of other specified parts of digestive tract
CPT/HCPCS: 36415; 36600; 71045; 74176; 80048; 80053; 80202; 81001; 82803; 82948; 83036; 83605; 83690; 83735; 83880; 84100; 84132; 84145; 84443; 84484; 85018; 85025; 87040; 87070; 87077; 87088; 87186; 92616; 93306; 94002; 94003; 94640; 94667; 94668; 94760; 96361; 96374; 96375; 97110; 97116; 97161; 97530; 99285; A6213; A6257; A6258; A6449; C1751; C1758; C9113; J0360; J0692; J0696; J0780; J1650; J1815; J1940; J1956; J2060; J2250; J2405; J2930; J3010; J3370; J3480; J3490; J7030; J7042; Q0163; Q0169

== ENCOUNTER 2018-03-19 07:34 | Emergency (ER) | payer BC ==
[~2018-03-19] VITALS: Ht 170.2 cm; Wt 76.6 kg
[~2018-03-19 07:34] MED LIST: FLUT1AER; LEVO125T PO; LEVO500T2 PO; LISI10TA4 PO; NAS0.025NS BOTHNARES; OMEP20CA10 PO
[2018-03-19 08:33] LABS: BASOPHILS # (AUTO) 0.1 X10'3 (0-0.2); BASOPHILS % (AUTO) 1.2 % (0-1); EOSINOPHILS # (AUTO) 0.4 X10'3 (0-0.9); EOSINOPHILS % (AUTO) 3.5 % (0-6); HEMATOCRIT 43.8 % (35.0-45.0); HEMOGLOBIN 14.7 g/dl (12.0-16.0); LYMPHOCYTES # (AUTO) 1.8 X10'3 (1.1-4.8); LYMPHOCYTES % (AUTO) 15.1 % (21-51); MEAN CORPUSCULAR HEMOGLOBIN 30.9 PG (27.0-31.0); MEAN CORPUSCULAR HGB CONC 33.6 % (33.0-36.5); MEAN PLATELET VOLUME 8.8 FL (7.4-10.4); MONOCYTES # (AUTO) 1.4 X10'3 (0-0.9); MONOCYTES % (AUTO) 11.3 % (2-12); NEUTROPHILS # (AUTO) 8.3 X10'3 (1.8-7.7); NEUTROPHILS % (AUTO) 68.9 % (42-75); PLATELET COUNT 431 X10'3 (140-440); RED BLOOD COUNT 4.76 X10'6 (4.20-5.60); RED CELL DISTRIBUTION WIDTH 13.9 % (11.5-14.5); WHITE BLOOD COUNT 12.1 X10'3 (4.5-11.0)
[2018-03-19] MEDS ORDERED: fentaNYL/PF 50MCG/1 ML 2ML syringe IV ONE ×2 (08:40→09:30)
[2018-03-19] MEDS ORDERED: ondansetron/PF 4mg/2ml inj IV ONE (08:40)
[2018-03-19] MEDS ORDERED: normal saline 1000ML IV soln IVB ONE (08:40)
[2018-03-19 08:42] LABS: CLARITY,URINE SLIGHTLY CLOUDY (Clear); COLOR,URINE YELLOW (Yellow); GLUCOSE, URINE NEGATIVE (Neg); KETONES,URINE 15 mg/dl (Neg); LEUKOCYTE ESTERASE ,URINE NEGATIVE (Neg); NITRITES, URINE NEGATIVE (Neg); OCCULT BLOOD,URINE TRACE-INTACT (Neg); PH,URINE 6.5 (4.8-8.0); PROTEIN,URINE TRACE mg/dl (Neg); UA COLLECTION TYPE CLN CATCH MIDSTREAM
[2018-03-19 08:43] LABS: INR 1.1 INR; PROTHROMBIN TIME 11.4 SECONDS (9.0-12.0)
[2018-03-19 08:47] LABS: ALANINE AMINOTRANSFERASE 22 U/L (12-78); ALBUMIN 3.3 G/DL (3.4-5.0); ALBUMIN/GLOBULIN RATIO 0.7 (1.1-1.5); ALKALINE PHOSPHATASE 149 IU/L (46-116); ANION GAP 12 (8-16); ASPARTATE AMINO TRANSFERASE 20 U/L (10-37); BILIRUBIN,TOTAL 0.8 MG/DL (0.1-1.0); BLOOD UREA NITROGEN 13 MG/DL (7-18); BUN/CREATININE RATIO 19.4 (6.6-38.0); CALCIUM 9.4 MG/DL (8.5-10.1); CHLORIDE 93 MMOL/L (99-107); CREATININE 0.67 MG/DL (0.40-0.90); GLUCOSE 130 MG/DL (70-104); LIPASE 306 U/L (73-393); POTASSIUM 3.5 MMOL/L (3.5-5.1); SODIUM 129 MMOL/L (135-145); TOTAL PROTEIN 7.8 G/DL (6.4-8.2); eGFR > 90 ML/MIN
[2018-03-19 08:49] LABS: MUCUS STRANDS MODERATE /LPF (Neg); SQUAMOUS EPITHELIAL CELL,UR MANY /LPF (FEW)
[2018-03-19 08:50] LABS: BACTERIA,URINE 1+ /HPF (Neg); RBC,URINE 0-2 /HPF (0-2); WBC,URINE 0-4 /HPF (0-4)
[2018-03-19] MEDS ORDERED: ONDA8TAB6 PO (09:39)
[2018-03-19] MEDS ORDERED: HYDR-3965 PO (09:39)
[2018-03-19 10:05] VITALS: BP 112/74
== END 2018-03-19 10:05 | disposition home or self-care (01) ==
LOC: ER 07:35
DX: K86.1 Other chronic pancreatitis (principal); J45.909 Unspecified asthma, uncomplicated; K21.9 Gastro-esophageal reflux disease without esophagitis; Z90.49 Acquired absence of other specified parts of digestive tract; Z88.0 Allergy status to penicillin; Z88.2 Allergy status to sulfonamides; Z88.5 Allergy status to narcotic agent; Z79.899 Other long term (current) drug therapy
CPT/HCPCS: 36415; 80053; 81001; 83690; 85025; 85610; 96374; 96375; 99284; J2405; J3010; J7030

== ENCOUNTER 2018-06-16 16:15 | Emergency (ER) | payer BC ==
[~2018-06-16] VITALS: Ht 170.2 cm; Wt 77.0 kg
[~2018-06-16 16:15] MED LIST changes: -LEVO500T2 PO; +ONDA8TAB6 PO
[2018-06-16 16:55] LABS: BASOPHILS % (AUTO) 0.4 % (0-1); EOSINOPHILS # (AUTO) 0.2 X10'3 (0-0.9); EOSINOPHILS % (AUTO) 1.7 % (0-6); HEMATOCRIT 46.3 % (35.0-45.0); HEMOGLOBIN 15.8 g/dl (12.0-16.0); LYMPHOCYTES # (AUTO) 1.8 X10'3 (1.1-4.8); LYMPHOCYTES % (AUTO) 14.3 % (21-51); MEAN CORPUSCULAR HGB CONC 34.1 % (33.0-36.5); MEAN PLATELET VOLUME 9.6 FL (7.4-10.4); MONOCYTES # (AUTO) 0.9 X10'3 (0-0.9); MONOCYTES % (AUTO) 7.1 % (2-12); NEUTROPHILS # (AUTO) 9.8 X10'3 (1.8-7.7); NEUTROPHILS % (AUTO) 76.5 % (42-75); PLATELET COUNT 220 X10'3 (140-440); RED BLOOD COUNT 5.09 X10'6 (4.20-5.60); RED CELL DISTRIBUTION WIDTH 15.1 % (11.5-14.5); WHITE BLOOD COUNT 12.8 X10'3 (4.5-11.0)
[2018-06-16] MEDS ORDERED: LORazepam 2 mg/ml vial IV ONE ×2 (16:55→18:25)
[2018-06-16] MEDS ORDERED: glycopyrrolate 0.2mg/ml inj IV ONE (16:55)
[2018-06-16] MEDS ORDERED: metoclopramide 5 mg/ml inj IV ONE (16:55)
[2018-06-16] MEDS ORDERED: normal saline 1000ML IV soln IVB ONE ×3 (16:55→18:25)
[2018-06-16] MEDS ORDERED: diphenhydrAMINE 50 mg/ml inj IV ONE (16:55)
[2018-06-16 17:04] LABS: PROTHROMBIN TIME 10.8 SECONDS (9.0-12.0)
[2018-06-16 17:20] LABS: ALANINE AMINOTRANSFERASE 37 U/L (12-78); ALBUMIN 3.5 G/DL (3.4-5.0); ALBUMIN/GLOBULIN RATIO 0.9 (1.1-1.5); ALKALINE PHOSPHATASE 111 IU/L (46-116); ANION GAP 11 (8-16); ASPARTATE AMINO TRANSFERASE 34 U/L (10-37); BILIRUBIN,TOTAL 0.3 MG/DL (0.1-1.0); BLOOD UREA NITROGEN 10 MG/DL (7-18); BUN/CREATININE RATIO 14.1 (6.6-38.0); CHLORIDE 101 MMOL/L (99-107); CREATININE 0.71 MG/DL (0.40-0.90); GLUCOSE 134 MG/DL (70-104); POTASSIUM 3.7 MMOL/L (3.5-5.1); SODIUM 135 MMOL/L (135-145); TOTAL PROTEIN 7.4 G/DL (6.4-8.2); eGFR 87 ML/MIN
[2018-06-16] MEDS ORDERED: HYDROmorphone inj. 0.5 MG/0.5 ML DISP.SYRIN IV ONE (17:30)
[2018-06-16] MEDS ORDERED: HYDROmorphone 1 mg/ml syringe IV ONE ×2 (17:35→18:25)
[2018-06-16 17:48] LABS: LIPASE 231 U/L (73-393)
[2018-06-16 19:04] LABS: COLOR,URINE YELLOW (Yellow); GLUCOSE, URINE NEGATIVE (Neg); KETONES,URINE NEGATIVE (Neg); LEUKOCYTE ESTERASE ,URINE NEGATIVE (Neg); NITRITES, URINE POSITIVE (Neg); OCCULT BLOOD,URINE NEGATIVE (Neg); PROTEIN,URINE NEGATIVE (Neg); UROBILINOGEN,URINE 0.2 E.U/dL (0.2-1.0)
[2018-06-16 19:05] LABS: URINE HCG NEGATIVE (NEG)
[2018-06-16 19:12] LABS: UA COLLECTION TYPE CLN CATCH MIDSTREAM
[2018-06-16 19:13] LABS: CLARITY,URINE SLIGHTLY CLOUDY (Clear); RBC,URINE NONE SEEN /HPF (0-2); WBC,URINE 0-4 /HPF (0-4)
[2018-06-16 19:14] LABS: BACTERIA,URINE 4+ /HPF (Neg); SQUAMOUS EPITHELIAL CELL,UR FEW /LPF (FEW)
[2018-06-16] MEDS ORDERED: cephalexin 250mg capsule PO ONE (19:30)
[2018-06-16] MEDS ORDERED: ONDA4TAB12 PO (20:14)
[2018-06-16] MEDS ORDERED: OXYC-138 PO (20:14)
[2018-06-16] MEDS ORDERED: CEPH500C5 PO (20:29)
[2018-06-16] MEDS ORDERED: LIDOcaine 1.5% w/epinephrine 1:200,000 5ml ampul IJ ONE (20:35)
[2018-06-16 20:42] VITALS: BP 130/68
== END 2018-06-16 20:53 | disposition home or self-care (01) ==
LOC: ER 16:15
DX: K85.90 Acute pancreatitis without necrosis or infection, unspecified (principal); R10.13 Epigastric pain; R10.11 Right upper quadrant pain; I10 Essential (primary) hypertension; J45.909 Unspecified asthma, uncomplicated; K21.9 Gastro-esophageal reflux disease without esophagitis; Z90.49 Acquired absence of other specified parts of digestive tract; Z88.0 Allergy status to penicillin; Z88.2 Allergy status to sulfonamides; Z88.5 Allergy status to narcotic agent; Z79.899 Other long term (current) drug therapy
CPT/HCPCS: 36415; 74176; 80053; 81001; 81025; 83690; 85025; 85610; 87077; 87088; 87186; 96374; 96375; 96376; 99285; J1170; J1200; J2060; J2765; J3490; J7030

== ENCOUNTER 2019-03-22 21:15 | Emergency (ER) | payer BC ==
[~2019-03-22] VITALS: Ht 170.2 cm; Wt 77.3 kg
[~2019-03-22 21:15] MED LIST changes: +CEPH500C5 PO; +ONDA4TAB12 PO; +OXYC-138 PO
[2019-03-22 21:51] VITALS: BP 118/78
[2019-03-22 22:20] LABS: ALANINE AMINOTRANSFERASE 49 U/L (12-78); ALBUMIN 3.2 G/DL (3.4-5.0); ALBUMIN/GLOBULIN RATIO 0.8 (1.1-1.5); ALKALINE PHOSPHATASE 102 IU/L (46-116); ANION GAP 16 (8-16); ASPARTATE AMINO TRANSFERASE 46 U/L (10-37); BILIRUBIN,TOTAL 0.2 MG/DL (0.1-1.0); BLOOD UREA NITROGEN 10 MG/DL (7-18); BUN/CREATININE RATIO 16.9 (6.6-38.0); CALCIUM 8.9 MG/DL (8.5-10.1); CHLORIDE 100 MMOL/L (99-107); CREATININE 0.59 MG/DL (0.40-0.90); ETHANOL 0.235 GM/DL (0.0-0.010); GLUCOSE 113 MG/DL (70-104); LIPASE 175 U/L (73-393); POTASSIUM 3.7 MMOL/L (3.5-5.1); SODIUM 134 MMOL/L (135-145); TOTAL CARBON DIOXIDE 18.5 MMOL/L (24-32); TOTAL PROTEIN 7.4 G/DL (6.4-8.2); eGFR > 90 ML/MIN
[2019-03-22 22:31] LABS: BASOPHILS # (AUTO) 0.1 X10'3 (0-0.2); EOSINOPHILS # (AUTO) 0.1 X10'3 (0-0.9); HEMOGLOBIN 14.6 g/dl (12.0-16.0); LYMPHOCYTES # (AUTO) 4.1 X10'3 (1.1-4.8); LYMPHOCYTES % (AUTO) 39.8 % (21-51); MEAN CORPUSCULAR HEMOGLOBIN 32.5 PG (27.0-31.0); MEAN CORPUSCULAR HGB CONC 34.7 g/dL (33.0-36.5); MEAN CORPUSCULAR VOLUME 93.6 FL (78-98); MEAN PLATELET VOLUME 9.2 FL (7.4-10.4); MONOCYTES # (AUTO) 0.9 X10'3 (0-0.9); MONOCYTES % (AUTO) 8.9 % (2-12); NEUTROPHILS % (AUTO) 49.3 % (42-75); PLATELET COUNT 395 X10'3 (140-440); RED BLOOD COUNT 4.48 X10'6 (4.20-5.60); RED CELL DISTRIBUTION WIDTH 14.2 % (11.5-14.5); WHITE BLOOD COUNT 10.2 X10'3 (4.5-11.0)
== END 2019-03-22 22:51 | disposition home or self-care (01) ==
LOC: ER 21:15
DX: R07.89 Other chest pain (principal); R06.02 Shortness of breath; F10.929 Alcohol use, unspecified with intoxication, unspecified; I10 Essential (primary) hypertension; J45.909 Unspecified asthma, uncomplicated; K21.9 Gastro-esophageal reflux disease without esophagitis; Z90.49 Acquired absence of other specified parts of digestive tract; Z88.0 Allergy status to penicillin; Z88.2 Allergy status to sulfonamides; Z79.899 Other long term (current) drug therapy; Y90.0 Blood alcohol level of less than 20 mg/100 ml
CPT/HCPCS: 36415; 80053; 80320; 83690; 84484; 85025; 93005; 99284

== ENCOUNTER 2019-11-04 18:54 | Emergency (ER) | payer MEDICAID ==
[~2019-11-04] VITALS: Ht 170.2 cm; Wt 82.0 kg
[~2019-11-04 18:54] MED LIST changes: +ALBU8.5H8 INH; -CEPH500C5 PO; -FLUT1AER; +FLUT1AER PO; +LISI-604 PO; -LISI10TA4 PO; -OMEP20CA10 PO; +OMEP20CA15 PO; -ONDA4TAB12 PO; -ONDA8TAB6 PO; +ONDA8TAB65 PO; -OXYC-138 PO
--- NOTE | 2019-11-04 19:30 | NUR ---
pt with an ng to the right nares taped in place safety pinned to gown clamped . picc line triple lumen to left arm . all ports capped except the hernández port. dressing dry and intact. awaiting xray to confirm placement prior to accessing for use.
[2019-11-04] MEDS ORDERED: [UNRECOGNIZED DRUG - OTHER] IV (20:06)
[2019-11-04] MEDS ORDERED: INSU100V9 SQ ×2 (20:06)
[2019-11-04] MEDS ORDERED: OXYC-150 PO (20:06)
[2019-11-04] MEDS ORDERED: MAGN64TA10 PO (20:06)
[2019-11-04] MEDS ORDERED: FLUT16SP2 BOTHNARES (20:06)
[2019-11-04] MEDS ORDERED: CEFT2VIA IV (20:06)
[2019-11-04] MEDS ORDERED: BACI1TAB2 PO (20:06)
[2019-11-04] MEDS ORDERED: LEVO75TA IV (20:06)
[2019-11-04] MEDS ORDERED: [UNRECOGNIZED DRUG - CODE] SQ (20:06)
[2019-11-04] MEDS ORDERED: PANT-47 PO (20:06)
[2019-11-04] MEDS ORDERED: CITA20TA19 PO (20:06)
[2019-11-04] MEDS ORDERED: [UNRECOGNIZED DRUG - CODE] IV (20:06)
[2019-11-04] MEDS ORDERED: NAS0.025NS BOTHNARES (20:06)
[2019-11-04] MEDS ORDERED: INSU100V5 SQ (20:06)
[2019-11-04] MEDS ORDERED: THIA100T66 PO (20:06)
[2019-11-04] MEDS ORDERED: FOLI0.8T PO (20:06)
[2019-11-04] MEDS ORDERED: MULT-685 PO (20:06)
--- NOTE | 2019-11-04 20:11 | NUR ---
DR CAMACHO CONFIRMED PIC LINE PLACEMENT WILL DRAW LABS FROM PIC LINE
[2019-11-04] MEDS ORDERED: iohexol 350MG/ML 100ml bottle IV ONE (20:17)
--- NOTE | 2019-11-04 20:20 | NUR ---
TRIPLE LUMAN PIC LINE TO THE LEFT ARM ABLE TO FLUSH WITH A PULSATING ACTION WELL. UNABLE TO DRAW BLOOD FROM ALL THREE PORTS . PT REPORTS THAT ELKE HAD HAD THE SAME PROBLEM AND QUIT USING THE PICC LINE FOR BLOOD DRAWS. PT SUGGESTED TO FLUSH ALL PORTS A FEW TIME . FLUSHED EACH PORT TWICE WITHOUT POSITIVE RESULTS FOR LAB DRAW. LAB DRAW DELAYED. UG DESIGNER WAS ALSO UNABLE TO FIND A SITE TO DRAW. NOTIFIED
--- NOTE | 2019-11-04 20:40 | NUR ---
lab at bedside attempting to draw patient again
--- NOTE | 2019-11-04 20:43 | NUR ---
lab successful with draw at this time
[2019-11-04] MEDS ORDERED: HYDROmorphone 1 mg/ml syringe IV ONE (20:45)
--- NOTE | 2019-11-04 20:49 | NUR ---
nohemy from [facility] called to check on patient
--- NOTE | 2019-11-04 20:55 | NUR ---
pain med not on floor called pharmacy
[2019-11-04 21:03] LABS: BASOPHILS % (AUTO) 0.5 % (0-1); EOSINOPHILS % (AUTO) 0.1 % (0-6); HEMATOCRIT 39.7 % (35.0-45.0); HEMOGLOBIN 13.5 g/dl (12.0-16.0); LYMPHOCYTES # (AUTO) 1.6 X10'3 (1.1-4.8); LYMPHOCYTES % (AUTO) 15.9 % (21-51); MEAN CORPUSCULAR HEMOGLOBIN 31.3 PG (27.0-31.0); MEAN CORPUSCULAR VOLUME 92.2 FL (78-98); MEAN PLATELET VOLUME 10.4 FL (7.4-10.4); MONOCYTES # (AUTO) 1.3 X10'3 (0-0.9); MONOCYTES % (AUTO) 13.3 % (2-12); NEUTROPHILS # (AUTO) 7.1 X10'3 (1.8-7.7); NEUTROPHILS % (AUTO) 70.2 % (42-75); PLATELET COUNT 349 X10'3 (140-440); RED BLOOD COUNT 4.31 X10'6 (4.20-5.60); RED CELL DISTRIBUTION WIDTH 14.6 % (11.5-14.5); WHITE BLOOD COUNT 10.1 X10'3 (4.5-11.0)
--- NOTE | 2019-11-04 21:05 | NUR ---
to pharmacy to get pain med
[2019-11-04 21:19] LABS: ALANINE AMINOTRANSFERASE 15 U/L (12-78); ALBUMIN 2.2 G/DL (3.4-5.0); ALBUMIN/GLOBULIN RATIO 0.5 (1.1-1.5); ALKALINE PHOSPHATASE 196 IU/L (46-116); ANION GAP 6 (8-16); ASPARTATE AMINO TRANSFERASE 12 U/L (10-37); BILIRUBIN,TOTAL 0.4 MG/DL (0.1-1.0); BLOOD UREA NITROGEN 15 MG/DL (7-18); BUN/CREATININE RATIO 19.2 (6.6-38.0); CALCIUM 8.7 MG/DL (8.5-10.1); CHLORIDE 96 MMOL/L (99-107); CREATININE 0.78 MG/DL (0.40-0.90); D-DIMER 8.48 MG/L FEU (0-0.50); GLUCOSE 324 MG/DL (70-104); PARTIAL THROMBOPLASTIN TIME 29 SECONDS (22-32); POTASSIUM 3.4 MMOL/L (3.5-5.1); SODIUM 133 MMOL/L (135-145); TOTAL CARBON DIOXIDE 30.9 MMOL/L (24-32); TOTAL PROTEIN 6.8 G/DL (6.4-8.2); eGFR 77 ML/MIN
--- NOTE | 2019-11-04 21:45 | NUR ---
pt to ct
--- NOTE | 2019-11-04 21:50 | NUR ---
spoke with debby crow about pt abnormal lab values d dminer 8.48 latic 2.2 k 3.4 na 133
[2019-11-04 21:57] LABS: CLARITY,URINE CLEAR (Clear); COLOR,URINE YELLOW (Yellow); GLUCOSE, URINE >=1000 mg/dl (Neg); KETONES,URINE NEGATIVE (Neg); LEUKOCYTE ESTERASE ,URINE NEGATIVE (Neg); NITRITES, URINE NEGATIVE (Neg); OCCULT BLOOD,URINE TRACE-INTACT (Neg); PROTEIN,URINE NEGATIVE (Neg); UROBILINOGEN,URINE 0.2 E.U/dL (0.2-1.0)
--- NOTE | 2019-11-04 22:01 | NUR ---
pt back from ct
[2019-11-04 22:05] LABS: UA COLLECTION TYPE CLN CATCH MIDSTREAM
[2019-11-04] MEDS ORDERED: acetaminophen 1,000mg/100ml IV 100 ML IV ONE (22:10)
[2019-11-04] MEDS ORDERED: normal saline 1000ML IV soln IV ONE (22:10)
[2019-11-04 22:11] LABS: WBC,URINE 0-4 /HPF (0-4)
[2019-11-04 22:12] LABS: BACTERIA,URINE NONE SEEN /HPF (Neg); RBC,URINE 0-2 /HPF (0-2); SQUAMOUS EPITHELIAL CELL,UR MODERATE /LPF (FEW)
[2019-11-04 22:13] LABS: MUCUS STRANDS FEW /LPF (Neg); YEAST FEW /HPF (NEGATIVE)
[2019-11-04] MEDS ORDERED: LORazepam 2 mg/ml vial IV ONE (22:35)
[2019-11-04] MEDS ORDERED: VANCOMYCIN 1gm/H2O 200ml PB 200 ML IV ONE (22:55)
[2019-11-04] MEDS ORDERED: CEFEPIME 2gm in D5W 50mL 50 ML IV ONE (23:05)
[2019-11-04] MEDS ORDERED: CEFEPIME 2 GM in NS 100ml IV.SOLN 100 ML IV ONE ×2 (23:05)
--- NOTE | 2019-11-04 23:10 | NUR ---
CONTACTED PHARMACY ABOUT MED AVAIABLITY ON UNIT. PHARMACY TO CALL BACK
--- NOTE | 2019-11-05 00:05 | NUR ---
CONTACTED [facility] ABOUT ANTIBIOTIC THAT IS NOT STORED ON UNIT [facility] STATES THEY WILL BE MAKING MEDICATION
--- NOTE | 2019-11-05 00:25 | NUR ---
cefapime order cancelled at 0022 and reordered. Started vancomycin infusion to have some sort of abx therapy as pharmacy clarifies and or mixes the cefepime that is not avaiable in ed or on any other unit in house. will continue to monitor cefepime medication availibility.
--- NOTE | 2019-11-05 01:02 | NUR ---
checked pt vancomycin infusion. pt with hives and redness to back stop transfusion flushed line notified dr shah of reaction.
--- NOTE | 2019-11-05 01:10 | NUR ---
A total of 80.7 ml of vancomycin infused iv total once infusion was stopped 20 ml ns flused pic line.
--- NOTE | 2019-11-05 01:25 | NUR ---
contatcted pharmacy again about abx cefapime. pharmacy states the medication is ready now to be picked up .
--- NOTE | 2019-11-05 02:20 | NUR ---
pt sitting in bed hob elevated 75 degreee pt with a ng to the right nares hooked to low intermitten suction. draining dark green gastric contents at this time o2 sats at 95 % on 3 l o2 per nc .
--- NOTE | 2019-11-05 02:40 | NUR ---
contatced pharmacy about vanco abx reaction. document in the patient allergies that thye had an alllergic reaction of hives
--- NOTE | 2019-11-05 02:45 | NUR ---
signifcant other to leave bedside to tend to animals at home. carmen Mercado at when discharge
--- NOTE | 2019-11-05 06:11 | NUR ---
PHONED PT SIGNIFICANT OTHER AT [phone] TO ADVISE HIM PT WILL NOT BE TRANSFERED ANYWHERE EXCEPT BACK TO [facility] ([facility]) . ETA FOR THE EMS TRANSPORTING IS 1 - 1 1/2 HOURS
[2019-11-05 06:46] VITALS: BP 97/66
[2019-11-05] MEDS ORDERED: cefepime 2gm inj IV SCH (08:00)
--- NOTE | 2019-11-05 08:05 | NUR ---
EMS HERE TO TRANSPORT PT BACK TO [facility]. REPORT GIVEN, [facility] CALLED AND NOTIFIED
== END 2019-11-05 08:05 ==
LOC: ER 18:55
DX: J18.1 Lobar pneumonia, unspecified organism (principal); K86.3 Pseudocyst of pancreas; R10.84 Generalized abdominal pain; I10 Essential (primary) hypertension; J45.909 Unspecified asthma, uncomplicated; K21.9 Gastro-esophageal reflux disease without esophagitis; Z90.49 Acquired absence of other specified parts of digestive tract; Z79.899 Other long term (current) drug therapy; Z79.4 Long term (current) use of insulin; Z88.1 Allergy status to other antibiotic agents; Z88.0 Allergy status to penicillin; Z88.2 Allergy status to sulfonamides; Z91.018 Allergy to other foods; Z91.013 Allergy to seafood
CPT/HCPCS: 36415; 71045; 71275; 74177; 80053; 81001; 82948; 83605; 84145; 84484; 85025; 85379; 85610; 85730; 87040; 93005; 96365; 96367; 96375; 99285; J0131; J0692; J1170; J2060; J3370; J7030; Q9967

== ENCOUNTER 2019-12-11 09:12 | Outpatient (CLI) | payer MEDICAID ==
[~2019-12-11 09:12] MED LIST changes: +BACI1TAB2 PO; +CEFT2VIA IV; +CITA20TA19 PO; +FLUT16SP2 BOTHNARES; +FOLI0.8T PO; +INSU100V5 SQ; +INSU100V9 SQ; -LEVO125T PO; +LEVO75TA IV; +MAGN64TA10 PO; +MULT-685 PO; -OMEP20CA15 PO; -ONDA8TAB65 PO; +OXYC-150 PO; +PANT-47 PO; +THIA100T66 PO; +[UNRECOGNIZED DRUG - CODE] IV; +[UNRECOGNIZED DRUG - CODE] SQ; +[UNRECOGNIZED DRUG - OTHER] IV; +iohexol 300mg/ml 100ml inj. ONE
== END 2019-12-11 23:59 | disposition home or self-care (01) ==
LOC: 64 CT 09:12
PROVIDERS: ATTEND Internal Medicine
DX: K85.92 Acute pancreatitis with infected necrosis, unspecified (principal)
CPT/HCPCS: 74160; Q9967

== ENCOUNTER 2021-01-08 02:17 | Emergency (ER) | payer MEDICAID ==
[~2021-01-08] VITALS: Ht 170.2 cm; Wt 80.0 kg
[~2021-01-08 02:17] MED LIST changes: -FOLI0.8T PO; +FOLI0.8T3 PO; -LISI-604 PO; +LISI-790 PO; -iohexol 300mg/ml 100ml inj. ONE
[2021-01-08 02:22] VITALS: BP 128/95
--- NOTE | 2021-01-08 02:28 | NUR ---
bruising to left thumb and left index knuckle
[2021-01-08] MEDS ORDERED: fentaNYL/PF 50MCG/1 ML 2ML syringe IM ONE (02:30)
[2021-01-08] MEDS ORDERED: ondansetron 4mg rapidly disintigrating tab PO ONE (02:30)
[2021-01-08] MEDS ORDERED: ketorolac trometh inj. 60 MG/2 ML VIAL IM ONE (02:30)
[2021-01-08] MEDS ORDERED: acetaminophen 325mg tablet PO ONE (02:30)
== END 2021-01-08 03:35 | disposition home or self-care (01) ==
LOC: ER 02:17
DX: S62.515A Nondisplaced fracture of proximal phalanx of left thumb, initial encounter for closed fracture (principal); I10 Essential (primary) hypertension; J45.909 Unspecified asthma, uncomplicated; K21.9 Gastro-esophageal reflux disease without esophagitis; Z90.49 Acquired absence of other specified parts of digestive tract; Z72.89 Other problems related to lifestyle; Z88.1 Allergy status to other antibiotic agents; Z88.0 Allergy status to penicillin; Z88.2 Allergy status to sulfonamides; Z88.5 Allergy status to narcotic agent; Z91.013 Allergy to seafood; Z79.899 Other long term (current) drug therapy; W18.39XA Other fall on same level, initial encounter; Y93.89 Activity, other specified; Y92.89 Other specified places as the place of occurrence of the external cause; Y99.8 Other external cause status
CPT/HCPCS: 29125; 73130; 96372; 99284; J1885; J3010

== ENCOUNTER 2021-04-26 13:51 | Day surgery (SDC) | payer MEDICAID ==
[2021-04-26] VITALS (11 sets, daily range): BP systolic 112–158; BP diastolic 55–87
[~2021-04-26] VITALS: Ht 170.2 cm; Wt 68.2 kg
[2021-04-26] MEDS ORDERED: ENOX40SY7 SUBCUT (14:32)
[2021-04-26] MEDS ORDERED: FEXO-61 PO (14:32)
[2021-04-26] MEDS ORDERED: OXYC20TA55 PO (14:33)
[2021-04-26] MEDS ORDERED: MOME13HF2 INH (14:34)
[2021-04-26] MEDS ORDERED: ZOLP5TAB2 PO (14:35)
[2021-04-26] MEDS ORDERED: diphenhydrAMINE 50 mg/ml inj ONE (15:24)
[2021-04-26] MEDS ORDERED: fentaNYL/PF 50MCG/1 ML 2ML syringe ONE ×2 (15:24→16:47)
[2021-04-26] MEDS ORDERED: LIDOcaine Viscous 15ml cup ONE (15:24)
[2021-04-26] MEDS ORDERED: MIDAZolam 1 MG/ML 5ML VIAL ONE (15:24)
[2021-04-26] MEDS ORDERED: glucagon, human recombinant 1mg kit ONE (15:25)
[2021-04-26] MEDS ORDERED: levoFLOXACIN-Levaquin 500mg/D5 100 ML IV ONE (15:25)
[2021-04-26] MEDS ORDERED: iohexol 300 MG/1 ML 50ml polymer ONE (15:25)
== END 2021-04-26 19:21 ==
LOC: GI LAB 13:51
PROVIDERS: ATTEND Internal Medicine Gastroenterology
DX: K83.1 Obstruction of bile duct (principal); E11.9 Type 2 diabetes mellitus without complications; F17.210 Nicotine dependence, cigarettes, uncomplicated; Z79.4 Long term (current) use of insulin; Z79.899 Other long term (current) drug therapy
CPT/HCPCS: 43274; 74328; 99152; 99153; C1726; C1769; C1876; J1200; J1610; J1956; J2250; J3010; J7040; Q9967; A4620; C2625

== ENCOUNTER 2021-07-15 06:41 | Day surgery (SDC) | payer MEDICAID ==
[2021-07-15] VITALS (13 sets, daily range): BP systolic 119–165; BP diastolic 75–108
[~2021-07-15] VITALS: Ht 170.2 cm; Wt 64.2 kg
[~2021-07-15 06:41] MED LIST changes: +ALBU8.5H17 INH; -ALBU8.5H8 INH; -BACI1TAB2 PO; -CEFT2VIA IV; -CITA20TA19 PO; +ENOX40SY7 SUBCUT; +FEXO-61 PO; -FLUT1AER PO; -FOLI0.8T3 PO; -LISI-790 PO; -MAGN64TA10 PO; +MOME13HF2 INH; -OXYC-150 PO; +OXYC20TA55 PO; -THIA100T66 PO; +ZOLP5TAB2 PO; -[UNRECOGNIZED DRUG - CODE] SQ
[2021-07-15] MEDS ORDERED: normal saline 1000ml 1,000 ML IV PRN (07:00)
[2021-07-15 07:44] LABS: BASOPHILS # (AUTO) 0.1 X10'3 (0-0.2); BASOPHILS % (AUTO) 1.2 % (0-1); EOSINOPHILS # (AUTO) 0.3 X10'3 (0-0.9); HEMOGLOBIN 14.8 g/dl (12.0-16.0); LYMPHOCYTES # (AUTO) 2.5 X10'3 (1.1-4.8); LYMPHOCYTES % (AUTO) 35.5 % (21-51); MEAN CORPUSCULAR HEMOGLOBIN 27.9 PG (27.0-31.0); MEAN CORPUSCULAR HGB CONC 34.4 g/dL (33.0-36.5); MEAN CORPUSCULAR VOLUME 81.1 FL (78-98); MEAN PLATELET VOLUME 8.7 FL (7.4-10.4); MONOCYTES # (AUTO) 0.6 X10'3 (0-0.9); MONOCYTES % (AUTO) 8.1 % (2-12); NEUTROPHILS # (AUTO) 3.7 X10'3 (1.8-7.7); NEUTROPHILS % (AUTO) 51.2 % (42-75); PLATELET COUNT 385 X10'3 (140-440); RED CELL DISTRIBUTION WIDTH 21.3 % (11.5-14.5); WHITE BLOOD COUNT 7.2 X10'3 (4.5-11.0)
[2021-07-15] MEDS ORDERED: ATRIN INH (08:19)
[2021-07-15] MEDS ORDERED: ALBU18HF2 INH (08:19)
[2021-07-15] MEDS ORDERED: FLUT1AER (08:19)
[2021-07-15] MEDS ORDERED: GLIM4TAB PO (08:19)
[2021-07-15] MEDS ORDERED: LEVO125T PO (08:19)
[2021-07-15] MEDS ORDERED: FEXO-62 PO (08:19)
[2021-07-15] MEDS ORDERED: OMEP10CA5 PO (08:19)
[2021-07-15] MEDS ORDERED: midazolam 1 mg/ML 2ml injection ONE ×2 (08:40→09:38)
[2021-07-15] MEDS ORDERED: LIDOcaine 1%/PF 5ML 10 MG/ML VIAL ONE (08:40)
[2021-07-15] MEDS ORDERED: fentaNYL/PF 50MCG/1 ML 2ML syringe ONE (08:40)
[2021-07-15] MEDS ORDERED: levoFLOXACIN-Levaquin 500mg/D5 100 ML IV ONE (08:55)
[2021-07-15 09:03] LABS: PLATELET ESTIMATE NORMAL
[2021-07-15] MEDS ORDERED: iohexol 300 MG/1 ML 50ml polymer ONE (09:03)
[2021-07-15 09:04] LABS: ANISOCYTOSIS 3+; ELLIPTOCYTES FEW
[2021-07-15] MEDS ORDERED: HYDROmorphone inj. 0.5 MG/0.5 ML DISP.SYRIN IV ONE ×3 (10:20→12:20)
--- NOTE | 2021-07-15 12:30 | NUR ---
Pt notified to contact Dr. Avendaño for follow up visit as per Dr. Bowman order. Addendum: 07/15/21 at 1815 by Tucker Jones RN Amended: Links added.
[2021-07-15] MEDS ORDERED: ondansetron/PF 4mg/2ml inj IV ONE (12:40)
== END 2021-07-15 13:33 | disposition home or self-care (01) ==
LOC: SSTAY O 06:41
PROVIDERS: ATTEND Radiology Diagnostic Radiology
DX: Z46.82 Encounter for fitting and adjustment of non-vascular catheter (principal); K83.09 Other cholangitis; K86.1 Other chronic pancreatitis; J44.9 Chronic obstructive pulmonary disease, unspecified; I10 Essential (primary) hypertension
CPT/HCPCS: 36415; 47536; 85008; 85025; C1729; C1769; J1170; J2250; J2405; J3010; Q9967; 99152; 99153